=== PATIENT | female | born 1970 | race Caucasian/White ===

== ENCOUNTER 2023-03-23 11:57 | Inpatient (IN) ==
[2023-03-23] MEDS ORDERED: SODIUM CHLORIDE 0.9% 1000ML 1,000 ML IV STA (12:13)
[2023-03-23] MEDS ORDERED: KETOROLAC TROMETHAMINE 15 MG/ML VIAL IV ONE (12:47)
[2023-03-23 12:53] LABS: Appearance Urine Cloudy (Clear); Bacteria Urine Automated 4+ (Negative); Bilirubin Urine Negative (Negative); Blood Urine 3+ (Negative); Color Urine Yellow; Epithelial Cell Urine Auto 20-30 /lpf (0-5); Glucose Urine UA Negative (Negative); Ketones Urine Negative (Negative); Leukocyte Esterase Urine 2+ (Negative); Nitrite Urine Positive (Negative); Protein Urine 2+ (Negative); Specific Gravity Urine 1.019 (1.000-1.030); Urobilinogen Urine Negative (Negative); WBC Urine Automated >30 /hpf (0-5)
[2023-03-23 13:09] LABS: Albumin Globulin Ratio 1.4 (0.9-2); Albumin Level 3.8 gm/dl (3.4-5.0); Bilirubin,Total 0.5 mg/dl (0.2-1.0); Calcium 8.7 mg/dl (8.6-10.3); Est GFR (Non-African American) 42.2 ml/min; Globulin 2.8 gm/dl (2.5-4.0); Potassium 3.5 mmol/L (3.5-5.1); Total Protein 6.6 gm/dl (6.0-8.3)
[2023-03-23 13:38] LABS: Pregnancy Test, Serum Negative (Negative)
--- NOTE | 2023-03-23 13:42 | CT Scan Report ---
ABDOMEN AND PELVIS CT WITHOUT CONTRAST CT DOSE: 762.37 mGycm HISTORY: left flank pain TECHNIQUE: Multiaxial CT images of the abdomen and pelvis were performed without contrast. A dose lo wering technique was utilized adhering to the principles of ALARA. COMPARISON STUDY: None. FINDINGS: There is a punctate calcified granuloma within the right lower lobe. The left lung base is clear. Pneumoperitoneum. No pneumatosis. Avascular necrosis within the right femoral head without art icular collapse. No acute fractures identified. Multiple small gallstones. The unenhanced liver, sple en, adrenal glands, and pancreas are unremarkable. Normal right kidney. A few punctate stones within the lower pole the left kidney. This mild left perinephric edema. There is mild to moderate left-side d hydronephrosis secondary to an obstructing 11 x 5 mm stone within the left ureteropelvic junction. This is best seen on image 165. No retroperitoneal lymphadenopathy. Normal caliber abdominal aorta. N o pelvic free fluid or pelvic lymphadenopathy. The bladder, uterus, bilateral adnexa are within miguel l limits. Suboptimal evaluation for bowel pathology due to the lack of intravenous and oral contrast. However, there is no definite bowel wall thickening or obstruction. Normal appendix. A few colonic d iverticula. No evidence for acute diverticulitis. IMPRESSION: 1. An 11 x 5 mm obstructing stone within the left ureteropelvic junction resulting in mild to moderat e left-sided hydronephrosis. 2. Left-sided nephrolithiasis. 3. Cholelithiasis. 4. 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 ACT 112: Negative or not required by law. Electronically signed by: Vish Epps M.D. 03/23/2023 1:41 PM
[2023-03-23] MEDS ORDERED: cefTRIAXone SODIUM 2,000 MG/70 ML BAG IV STA (13:55)
[2023-03-23] MEDS ORDERED: HYDROmorphone INJ 0.5 MG/0.5 ML SYR IV PRN ×2 (13:57→15:26)
--- NOTE | 2023-03-23 14:01 | Emergency Department Note ---
Impression & Plan Pyelonephritis, Ureterolithiasis ED Provider Note INFORMANT: Patient ED PROVIDER(S): Chase Mishra MD CHIEF COMPLAINT: Left flank pain PLAN: Disposition: Admitted Condition: Good Outpatient prescription management: None Referral: MEDICAL DECISION MAKING: Patient presented because of left leg pain. Work-up was initiated. She had an IV established. She was hydrated. She was given Zofran and Toradol. The patient had a UTI and urinalysis. Her CBC and chemistry panel revealed a leukocytosis. The patient's CT scan reveals an obstructing left-sided large ureteral stone. Given the flank pain and the UTI this is concerning for pyelonephritis. Consultation was made with [facility] urology. The patient was treated with IV Rocephin. Urology will see the patient and likely intervention by Dr. Mayers. Sedation was made with the [facility] hospitalist service. Case was discussed with Dr. Stockton. Patient was evaluated in the ER and admitted for further management. 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 After review of the information above and other included data, I feel the patient requires admission. Triage Nursing notes reviewed and agree them. Vital Signs: reviewed and remarkable for no significant abnormalities Prior /Outside records reviewed: none Differential diagnosis: Renal colic, UTI, appendicitis, diverticulitis, mesenteric ischemia, aortic pathology, infections, inflammatory bowel disease, PUD, biliary pathology, as well as other pathologies. Diagnostics, as interpreted by me: ECG: none Cardiac Monitoring: Cardiac monitoring ordered by me: The patient was placed on continuous cardiac monitoring and observed. It revealed a normal sinus rhythm at 98 beats per minute without ectopy or evidence of dysrhythmia. Medical decision rules: none Imaging studies: CT scan as noted above. HPI: The patient is a 52year old female who presents to the Emergency Room with complaints of left flank pain. This started several days ago and is persisting. The patient also notes the following associated symptoms, left lower back pain, nausea, decreased urination. The patient has found no relieving factors. Current pain is rated as 7/10. Patient unsure of fevers. Pt denies LOC, headache, chills, diaphoresis, visual changes, neck pain, chest pain, breathing difficulties, vomiting, right-sided abdominal pain, right-sided back pain, melena, hematochezia, urinary symptoms, numbness, weakness, lymphadenopathy, rash, or other complaints. PAST MEDICAL HISTORY: See Below, asthma PAST SURGICAL HISTORY: See Below, SOCIAL HISTORY: See Below, smoker HOME MEDICATIONS: See Below ALLERGIES: See Below VITALS: See Below PHYSICAL EXAMINATION: GENERAL: Awake, alert, uncomfortable-appearing, in no distress HENT: Normocephalic, atraumatic. Oropharynx unremarkable. EYES: Normal conjunctiva. Sclera non-icteric. NECK: Inspection normal. Non-tender. Supple. No nuchal rigidity. FROM. No masses. RESPIRATORY: Clear to auscultation. No wheezes. No rales. Normal respiratory effort. CARDIAC: Normal rate. Normal rhythm. No murmurs. No rubs. Extremities warm and well perfused. Pulses equal. No JVD. GI: Soft, non-distended. No tenderness to palpation. No rebound or guarding. No masses. RECTAL: Deferred. MUSCULOSKELETAL: Atraumatic. Chest examination reveals no tenderness. The back is symmetrical on inspection without obvious abnormality. There is left CVA tenderness to palpation. No joint edema. LOWER EXTREMITIES: Calves are equal size bilaterally and non-tender. No edema. No discoloration. NEURO: Normal sensorium. No sensory or motor deficits noted. SKIN: No rash or jaundice noted. Past Med/Surg History Medical History (Updated 03/23/23 @ 15:32 by Federico Stockton MD) Mild intermittent asthma Tobacco use Ureterolithiasis Social History Smoking Status: Current every day smoker Preferred Language: Austrian Home Meds Home Medications Medication Instructions Recorded Confirmed albuterol sulfate 90 mcg/actuation 1 inh inhalation BID PRN Shortness 03/23/23 03/23/23 aerosol inhaler Of Breath Results & Data (ED) Vital Signs Vital Signs - 24 hr 03/23/23 12:00 03/23/23 12:32 03/23/23 12:32 Pulse Rate 115 H Pulse Rate from SpO2 Sensor Respiratory Rate 16 15 Blood Pressure 142/78 H Blood Pressure Mean 99 Pulse Oximetry 96 97 97 Oxygen Delivery Method Room Air Room Air Oxygen Flow Rate Sepsis Recent Fever Within 48 Hours No Sepsis New/Unexplained Change in Mental Status No Sepsis Action Taken by Nursing No Action Required 03/23/23 12:36 03/23/23 12:33 03/23/23 12:40 Pulse Rate 91 H 90 91 H Pulse Rate from SpO2 Sensor 90 91 H Respiratory Rate 15 23 Blood Pressure Blood Pressure Mean Pulse Oximetry 98 97 Oxygen Delivery Method Oxygen Flow Rate Sepsis Recent Fever Within 48 Hours Sepsis New/Unexplained Change in Mental Status Sepsis Action Taken by Nursing 03/23/23 12:50 03/23/23 13:00 03/23/23 13:10 Pulse Rate 90 93 H 92 H Pulse Rate from SpO2 Sensor 91 H 93 H 92 H Respiratory Rate 15 15 24 Blood Pressure Blood Pressure Mean Pulse Oximetry 97 98 97 Oxygen Delivery Method Oxygen Flow Rate Sepsis Recent Fever Within 48 Hours Sepsis New/Unexplained Change in Mental Status Sepsis Action Taken by Nursing 03/23/23 13:25 03/23/23 13:30 03/23/23 13:40 Pulse Rate 98 H 92 H 93 H Pulse Rate from SpO2 Sensor 98 H 93 H 93 H Respiratory Rate 23 15 15 Blood Pressure Blood Pressure Mean Pulse Oximetry 96 97 95 Oxygen Delivery Method Oxygen Flow Rate Sepsis Recent Fever Within 48 Hours Sepsis New/Unexplained Change in Mental Status Sepsis Action Taken by Nursing 03/23/23 13:50 03/23/23 14:00 03/23/23 14:10 Pulse Rate 101 H 98 H Pulse Rate from SpO2 Sensor 101 H 99 H 99 H Respiratory Rate 15 15 15 Blood Pressure Blood Pressure Mean Pulse Oximetry 95 94 94 Oxygen Delivery Method Oxygen Flow Rate Sepsis Recent Fever Within 48 Hours Sepsis New/Unexplained Change in Mental Status Sepsis Action Taken by Nursing 03/23/23 14:20 03/23/23 14:30 03/23/23 14:36 Pulse Rate Pulse Rate from SpO2 Sensor 98 H 101 H Respiratory Rate 15 15 Blood Pressure 119/57 L Blood Pressure Mean 77 Pulse Oximetry 96 90 Oxygen Delivery Method Oxygen Flow Rate Sepsis Recent Fever Within 48 Hours Sepsis New/Unexplained Change in Mental Status Sepsis Action Taken by Nursing 03/23/23 14:36 03/23/23 14:40 03/23/23 14:50 Pulse Rate Pulse Rate from SpO2 Sensor 100 H 98 H 101 H Respiratory Rate 18 23 23 Blood Pressure Blood Pressure Mean Pulse Oximetry 96 97 97 Oxygen Delivery Method Oxygen Flow Rate Sepsis Recent Fever Within 48 Hours Sepsis New/Unexplained Change in Mental Status Sepsis Action Taken by Nursing 03/23/23 15:36 Pulse Rate Pulse Rate from SpO2 Sensor Respiratory Rate 15 Blood Pressure Blood Pressure Mean Pulse Oximetry 96 Oxygen Delivery Method Nasal Cannula Oxygen Flow Rate 2 Sepsis Recent Fever Within 48 Hours Sepsis New/Unexplained Change in Mental Status Sepsis Action Taken by Nursing Laboratory Data 03/23/23 12:30 03/23/23 12:30 Lab Results 03/23/23 03/23/23 03/23/23 Range/Units 12:30 12:30 12:30 WBC 12.83 H (4.8-10.8) K/ul RBC 4.33 (4.20-5.40) M/uL Hgb 13.4 (12.0-16.0) g/dl Hct 38.7 (37.0-47.0) % MCV 89.4 (80.0-100.0) fL MCH 30.9 (25.0-34.0) pg MCHC 34.6 (32.0-36.0) g/dL RDW Std Deviation 42.5 (36.4-46.3) fL RDW Coeff of Bravo 13.0 (11.5-14.5) % Plt Count 169 (130-400) K/uL MPV 9.5 (9.4-12.4) fL Immature Gran % (Auto) 0.4 % Neut % (Auto) 82.6 % Lymph % (Auto) 6.0 % Nicholas % (Auto) 10.8 % Eos % (Auto) 0.0 % Baso % (Auto) 0.2 % Neut # (Auto) 10.60 H (1.40-6.50) K/uL Lymph # (Auto) 0.77 L (1.2-3.4) K/uL Nicholas # (Auto) 1.38 H (0.11-0.59) K/uL Eos # (Auto) 0.00 (0-0.50) K/uL Baso # (Auto) 0.03 (0-0.2) K/uL Immature Gran # (Auto) 0.05 (0.01-0.20) K/uL Sodium 132 L (136-145) mmol/L Potassium 3.5 (3.5-5.1) mmol/L Chloride 100 (98-107) mmol/L Carbon Dioxide 23 (21-32) mmol/L Anion Gap 9 (3-11) BUN 23 (6-23) mg/dl Creatinine 1.44 H (0.6-1.2) mg/dl Est Cr Clr Drug Dosing 50.0 ml/min Est GFR ( Amer) 49.0 ml/min Est GFR (Non-Af Amer) 42.2 ml/min BUN/Creatinine Ratio 16.0 (10-20) Glucose 111 H (70-99(Fasting)) mg/dl Calcium 8.7 (8.6-10.3) mg/dl Total Bilirubin 0.5 (0.2-1.0) mg/dl AST 26 (13-39) U/L ALT 30 (7-52) U/L Alkaline Phosphatase 81 (34-104) U/L Troponin I High Sens Total Protein 6.6 (6.0-8.3) gm/dl Albumin 3.8 (3.4-5.0) gm/dl Globulin 2.8 (2.5-4.0) gm/dl Albumin/Globulin Ratio 1.4 (0.9-2) Lipase 8 L (11-82) U/L HCG, Qual Negative (Negative) Urine Color Urine Appearance (Clear) Urine pH (4.5-7.5) Ur Specific Harold (1.000-1.030) Urine Protein (Negative) Urine Glucose (UA) (Negative) Urine Ketones (Negative) Urine Blood (Negative) Urine Nitrite (Negative) Urine Bilirubin (Negative) Urine Urobilinogen (Negative) Ur Leukocyte Esterase (Negative) Urine WBC (Auto) (0-5) /hpf Urine RBC (Auto) (0-4) /hpf U Hyaline Cast (Auto) (0-5) /lpf U Epithel Cells (Auto) (0-5) /lpf Urine Bacteria (Auto) (Negative) SARS-CoV-2, RNA, NAAT (NEGATIVE) 03/23/23 03/23/23 03/23/23 Range/Units 12:30 14:55 15:04 WBC (4.8-10.8) K/ul RBC (4.20-5.40) M/uL Hgb (12.0-16.0) g/dl Hct (37.0-47.0) % MCV (80.0-100.0) fL MCH (25.0-34.0) pg MCHC (32.0-36.0) g/dL RDW Std Deviation (36.4-46.3) fL RDW Coeff of Bravo (11.5-14.5) % Plt Count (130-400) K/uL MPV (9.4-12.4) fL Immature Gran % (Auto) % Neut % (Auto) % Lymph % (Auto) % Nicholas % (Auto) % Eos % (Auto) % Baso % (Auto) % Neut # (Auto) (1.40-6.50) K/uL Lymph # (Auto) (1.2-3.4) K/uL Nicholas # (Auto) (0.11-0.59) K/uL Eos # (Auto) (0-0.50) K/uL Baso # (Auto) (0-0.2) K/uL Immature Gran # (Auto) (0.01-0.20) K/uL Sodium (136-145) mmol/L Potassium (3.5-5.1) mmol/L Chloride (98-107) mmol/L Carbon Dioxide (21-32) mmol/L Anion Gap (3-11) BUN (6-23) mg/dl Creatinine (0.6-1.2) mg/dl Est Cr Clr Drug Dosing ml/min Est GFR ( Amer) ml/min Est GFR (Non-Af Amer) ml/min BUN/Creatinine Ratio (10-20) Glucose (70-99(Fasting)) mg/dl Calcium (8.6-10.3) mg/dl Total Bilirubin (0.2-1.0) mg/dl AST (13-39) U/L ALT (7-52) U/L Alkaline Phosphatase (34-104) U/L Troponin I High Sens Cancelled Total Protein (6.0-8.3) gm/dl Albumin (3.4-5.0) gm/dl Globulin (2.5-4.0) gm/dl Albumin/Globulin Ratio (0.9-2) Lipase (11-82) U/L HCG, Qual (Negative) Urine Color Yellow Urine Appearance Cloudy A (Clear) Urine pH 6.0 (4.5-7.5) Ur Specific Harold 1.019 (1.000-1.030) Urine Protein 2+ H (Negative) Urine Glucose (UA) Negative (Negative) Urine Ketones Negative (Negative) Urine Blood 3+ H (Negative) Urine Nitrite Positive A (Negative) Urine Bilirubin Negative (Negative) Urine Urobilinogen Negative (Negative) Ur Leukocyte Esterase 2+ H (Negative) Urine WBC (Auto) >30 H (0-5) /hpf Urine RBC (Auto) 10-30 H (0-4) /hpf U Hyaline Cast (Auto) 5-10 H (0-5) /lpf U Epithel Cells (Auto) 20-30 H (0-5) /lpf Urine Bacteria (Auto) 4+ H (Negative) SARS-CoV-2, RNA, NAAT NEGATIVE (NEGATIVE) Administered Medications Discontinued Medications Hydromorphone HCl (Hydromorphone Inj 0.5 Mg/0.5 Ml Syr) 0.25 mg IV Q15M PRN PRN Reason: Pain Stop: 04/06/23 13:56 Last Admin: 03/23/23 14:22 Dose: 0.25 mg Documented By: VALERIA Sodium Chloride (Nss 1000ml) 1,000 mls @ 999 mls/hr IV .Q1H1M STA Stop: 03/23/23 13:13 Last Infusion: 03/23/23 13:37 Dose: 0 mls/hr Documented By: Admin: 03/23/23 12:34 Dose: 999 mls/hr Documented By: VALERIA Ceftriaxone Sodium (Rocephin) 2,000 mg in 70 mls @ 140 mls/hr IV NOW STA Stop: 03/23/23 14:24 Last Infusion: 03/23/23 14:54 Dose: 0 mls/hr Documented By: Admin: 03/23/23 14:23 Dose: 140 mls/hr Documented By: VALERIA Ketorolac Tromethamine (Ketorolac Tromethamine 15 Mg/Ml Vial) 15 mg IV NOW ONE Stop: 03/23/23 12:48 Last Admin: 03/23/23 13:35 Dose: 15 mg Documented By: VALERIA Ondansetron HCl (Ondansetron Inj 2 Mg/Ml 2 Ml Vial) 4 mg IV NOW STA Stop: 03/23/23 14:12 Last Admin: 03/23/23 14:22 Dose: 4 mg Documented By: VALERIA Imaging Data Radiologist's Impression: Abdomen/Pelvis CT 03/23/23 12:[address] WITHOUT CONTRAST CT DOSE: 762.37 mGycm HISTORY: left flank pain TECHNIQUE: Multiaxial CT images of the abdomen and pelvis were performed without contrast. A dose lowering technique was utilized adhering to the principles of ALARA. COMPARISON STUDY: None. FINDINGS: There is a punctate calcified granuloma within the right lower lobe. The left lung base is clear. Pneumoperitoneum. No pneumatosis. Avascular necrosis within the right femoral head without articular collapse. No acute fractures identified. Multiple small gallstones. The unenhanced liver, spleen, adrenal glands, and pancreas are unremarkable. Normal right kidney. A few punctate stones within the lower pole the left kidney. This mild left perinephric edema. There is mild to moderate left-sided hydronephrosis secondary to an obstructing 11 x 5 mm stone within the left ureteropelvic junction. This is best seen on image 165. No retroperitoneal lymphadenopathy. Normal caliber abdominal aorta. No pelvic free fluid or pelvic lymphadenopathy. The bladder, uterus, bilateral adnexa are within normal limits. Suboptimal evaluation for bowel pathology due to the lack of intravenous and oral contrast. However, there is no definite bowel wall thickening or obstruction. Normal appendix. A few colonic diverticula. No evidence for acute diverticulitis. IMPRESSION: 1. An 11 x 5 mm obstructing stone within the left ureteropelvic junction resulting in mild to moderate left-sided hydronephrosis. 2. Left-sided nephrolithiasis. 3. Cholelithiasis. 4. 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 ACT 112: Negative or not required by law. Electronically signed by: Vish Epps M.D. 03/23/2023 1:41 PM Discharge Plan Visit Data Chief Complaint: Kidney Stone Stated Complaint: KIDNEY STONES, MAY TURN SEPSIS,PAIN,NAUSEA ED Provider: Chase Mishra Discharge Problem: Pyelonephritis, Ureterolithiasis Forms Stand Alone Forms: My [facility] BDA Prescriptions Prescriptions: No Action albuterol sulfate 90 mcg/actuation HFA aerosol inhaler 1 inh INHALATION BID PRN (Reason: Shortness Of Breath) Patient Comments: Per pt, she uses inhaler once in the morning and once at night. Referrals Referrals: PCP,NO [Primary Care Provider] -
[2023-03-23] MEDS ORDERED: ONDANSETRON INJ 2 MG/ML 2 ML VIAL IV STA (14:11)
[2023-03-23 14:16] LABS: Basophils # (auto) 0.03 K/uL (0-0.2); Basophils % (auto) 0.2 %; Hematocrit (blood only) 38.7 % (37.0-47.0); Hemoglobin 13.4 g/dl (12.0-16.0); Immature Granulocytes # (auto) 0.05 K/uL (0.01-0.20); Immature Granulocytes % (auto) 0.4 %; Lymphocytes # (auto) 0.77 K/uL (1.2-3.4); Mean Corpuscular Hemoglobin 30.9 pg (25.0-34.0); Mean Corpuscular Hgb Conc 34.6 g/dL (32.0-36.0); Mean Corpuscular Volume 89.4 fL (80.0-100.0); Mean Platelet Volume 9.5 fL (9.4-12.4); Monocytes # (auto) 1.38 K/uL (0.11-0.59); Monocytes % (auto) 10.8 %; Neutrophils % (auto) 82.6 %; Platelet Count 169 K/uL (130-400); RDW Standard Deviation 42.5 fL (36.4-46.3); Red Blood Count 4.33 M/uL (4.20-5.40); White Blood Count 12.83 K/ul (4.8-10.8)
--- NOTE | 2023-03-23 14:51 | History & Physical Report ---
Date of Service March 23, 2023 Assessment & Plan (1) Pyelonephritis: Plan: Estrellita is a 52-year-old female with past history of kidney stones who presents with an obstructing left UPJ stone and associated complicated UTI. She is having some chest tightness without cardiac history, but different from prior asthma episodes. Complicated UTI, left obstructing nephrolithiasis -CT: 1. An 11 x 5 mm obstructing stone within the left ureteropelvic junction resulting in mild to moderate left-sided hydronephrosis. 2. Left-sided nephrolithiasis. 3. Cholelithiasis. 4. 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 With leukocytosis, fever, chills and associated ZARI Patient tachycardic, mildly hypotensive, with leukocytosis and urinary source. Meets SIRS criteria. At time of consultation additional NSS was ordered to meet 30 cc/kg ideal body weight, antibiotics have been ordered. Antibiotics given prior to blood cultures, these are deferred. Clear urinary source, with infected appearing UA and UCx pending. Defer additional Toradol due to ZARI Multimodal pain control, Tylenol and breakthrough hydromorphone Urology consulted, anticipate stent placement and stone retrieval Troponin pending, patient has had some chest tightness different from prior asthma, which is improved following fluids. No history of heart disease, does have tobacco use. No diabetes. Chest pain No EKG changes. QTC 398ms. Asthma Well-controlled, no wheezing. Continue albuterol as needed ZARI, acute unstable In the setting of obstructive hydronephrosis and poor intake Pending stone intervention with urology as above Continue fluids, trend daily, renally dose medications DVT prophylaxis: Heparin due to ZARI Diet: N.p.o. pending urologic intervention Disposition: Medical telemetry for chest pain eval, if stable and patient doing well may downgrade to medical surgical CODE STATUS: Full code (2) Ureterolithiasis: History of Present Illness Primary Care Provider: NO PCP Estrellita seen at the bedside in the ER. She reports she has had kidney stones before, last 1 year ago but they have never required treatment and has always been able to pass the stones on her own. She reports that she has had treatment for UTIs in the past, but her current episode seems much worse. She reports the last 4 days she has had progressively worsening pain in her left lower abdomen which radiates into her left back and is with CVA tenderness. She had fever, chills, shaking sweats for at least the last 2 days. She is not sure what color her urine is, has not been eating and drinking well due to nausea. No diarrhea. She has history of asthma with some chest tightness, in the last day she has had some chest tightness which feels different than her normal asthma tightness but denies pain. This does not radiate to her neck or shoulder. No prior cardiac history, heart failure, or heart attacks. No history of MIs in the family. She does use tobacco products which she has not used recently due to feeling poor and declines a patch. Rare intermittent alcohol use, no sustained use. No antibiotic allergies. Medical History: Reviewed. Past history of kidney stones. Takes no chronic medications. Uses albuterol as needed for exercise-induced asthma, has not needed this recently. Denies other medications. Medications: Reviewed Surgical History: Reviewed Family history: Reviewed Allergies: Reviewed Social History: Tobacco use, no alcohol use Code Status: Full code Allergies Allergy/AdvReac Type Severity Reaction Status Date / Time No Known Allergies Allergy Verified 03/23/23 17:51 Home Medications Medication Instructions Recorded Confirmed Type albuterol sulfate 90 mcg/actuation 1 inh inhalation DIRECTED PRN 03/23/23 03/23/23 History aerosol inhaler Shortness Of Breath Past Med/Surg History Medical History Mild intermittent asthma Tobacco use Ureterolithiasis Surgical History (Updated 03/23/23 @ 17:52 by Malina Victoria DO) H/O wisdom tooth extraction History of bilateral breast reduction surgery Social History Smoking Status: Current every day smoker Hx Alcohol Use: Yes Alcohol type: beer Hx Substance Use: No Preferred Language: Irish Current Living Situation: Spouse Feels Safe at Home: Yes Safety Concerns: Feels Safe At This Time Assistive Devices: None Review of Systems Review of Systems: All systems reviewed & are unremarkable except as noted in HPI & below Physical Exam Physical Exam: General: A&Ox3. Cooperative. Appears fatigued and ill but nontoxic HEENT: Atraumatic, normocephalic. Pupils equal and reactive to light, vision and hearing grossly intact Pulm: CTAB A&P. -wheezes, -rales, -rhonchi. Symmetrical chest rise. No increased work of breathing. No respiratory distress. Cardiac: Regular, tachycardic, -mrg. Radial pulses intact and symmetrical. Abdominal: Left lower quadrant tenderness to palpation, left CVA tenderness. No right-sided tenderness. Abdomen is soft and without rebound or guarding. Extremities: Warm, dry. No lower extremity edema. 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 and ankle dorsiflexion/plantarflexion 5/5 bilateral Results & Data Results & Data Vital Signs (Past 12 Hours) Vital Signs Pulse Resp BP Pulse Ox O2 Del Method 03/23/23 12:36 91 H 03/23/23 12:32 15 97 Room Air 03/23/23 12:32 16 97 Room Air 03/23/23 12:00 115 H 142/78 H 96 Code Status & VTE Plan VTE Prophylaxis Plan VTE Prophylaxis will be ordered: Yes PG Care Time/CCT Total # of Minutes Spent Total Time Spent with Patient: Total time spent is greater than 50% in coordination of care (as documented) at patient's floor/unit and/or counseling patient: Coding Level of Care Code 45528 INT INP/OBS CARE 2/55MIN Diagnoses Pyelonephritis N12 Ureterolithiasis N20.1
--- NOTE | 2023-03-23 15:17 | Urology Consultation ---
Date of Consultation March 23, 2023 Assessment & Plan (1) Left ureteral stone: (2) Hydronephrosis, left: (3) UTI (urinary tract infection): Plan 52yo/F admitted with concern for infection and an obstructing left ureteral stone. -CT abd pelvis demonstrates an 11x5mm obstructing left UPJ with mild-mod hydro and additional left sided renal stones. -No documented fever. Tachycardic. -Labs show a leukocytosis of 12.83, hemoglobin 13, creatinine of 1.44. Continue to trend. -UA concerning for infection, culture pending. -IV Ceftriaxone given in ED. -We discussed acute stone management with cystoscopy and stent placement. Ureteral stents were discussed as well as postoperative issues and pain management. She is aware that a second procedure will be necessary for definitive stone treatment. All questions were answered. -Will keep NPO for now for possible left sided stent placement either later tonight or tomorrow. -Continue supportive care, antibiotic therapy, prn pain management. -Urology will follow closely. History of Present Illness History of Present Illness 52 year-old female who presented to the ED today with complaints of left flank pain and nausea for several days. On arrival, she was afebrile and tachycardic. Labs show a leukocytosis of 12.83 and creatinine of 1.44. UA with 3+blood, +nitrite, 2+LE, 4+bacteria. CT abd pelvis demonstrates an 11x5mm obstructing left UPJ with mild-mod hydro and additional left sided renal stones Pt given dilaudid, toradol, zofran in ED. Urine culture pending -IV Ceftriaxone given. Patient examined at bedside in the ED. Awake, resting in bed on arrival. No acute distress. She does report a history of stones with spontaneous passage. Does not follow with a urologist. She does report subjective fevers and chills/shakes at home, however did not check her temperature. Has not been eating or drinking well due to nausea. Denies hematuria/dysuria. Had cereal around 5:30am, but nothing since other than a few sips of water. Pt being admitted to medicine. Has also c/o chest tightness so they are checking troponin. No cardiac hx. Has hx of asthma. Home Medications Medication Instructions Recorded Confirmed Type albuterol sulfate 90 mcg/actuation 1 inh inhalation DIRECTED PRN 03/23/23 03/23/23 History aerosol inhaler Shortness Of Breath Patient History Medical History Mild intermittent asthma Tobacco use Ureterolithiasis Social History Smoking Status: Current every day smoker Hx Alcohol Use: Yes Alcohol type: beer Hx Substance Use: No Preferred Language: [place]an Current Living Situation: Spouse Feels Safe at Home: Yes Safety Concerns: Feels Safe At This Time Assistive Devices: None Review of Systems Review of Systems: All systems reviewed & are unremarkable except as noted in HPI & below Physical Exam Constitutional: Appears fatigued, flushed. Non-toxic. Cooperative. Neck: normal visual inspection Respiratory: no respiratory distress and no labored breathing Gastrointestinal (Abdomen): Percussion/Palpation: + abdomen tender (left side) and abdomen soft Musculoskeletal: Head/Neck/Chest: normocephalic Skin: No visible rashes or lesions to exposed skin areas Neurologic: awake Psychiatric: A+Ox3, euthymic affect Genitourinary: Left flank/LLQ tenderness with palpation Results & Data Vital Signs (Past 12 Hours) Vital Signs Pulse Resp BP Pulse Ox O2 Del Method 03/23/23 14:50 23 97 03/23/23 14:40 23 97 03/23/23 14:36 18 96 03/23/23 14:36 119/57 L 03/23/23 14:30 15 90 03/23/23 14:20 15 96 03/23/23 14:10 15 94 03/23/23 14:00 98 H 15 94 03/23/23 13:50 101 H 15 95 03/23/23 13:40 93 H 15 95 03/23/23 13:30 92 H 15 97 03/23/23 13:25 98 H 23 96 03/23/23 13:10 92 H 24 97 03/23/23 13:00 93 H 15 98 03/23/23 12:50 90 15 97 03/23/23 12:40 91 H 23 97 03/23/23 12:33 90 15 98 03/23/23 12:36 91 H 03/23/23 12:32 15 97 Room Air 03/23/23 12:32 16 97 Room Air 03/23/23 12:00 115 H 142/78 H 96 PG Care Time/CCT Total # of Minutes Spent Total Time Spent with Patient: Total time spent is greater than 50% in coordination of care (as documented) at patient's floor/unit and/or counseling patient: Coding Level of Care Code 50907 IN/OBS CONSULT LVL 4,60M Diagnoses Left ureteral stone N20.1 Hydronephrosis, left N13.30 UTI (urinary tract infection) N39.0
[2023-03-23] MEDS ORDERED: ACETAMINOPHEN 1,000 MG/100 ML VIAL IV PRN (15:26)
[2023-03-23 16:11] LABS: Troponin I High Sensitivity 5.3 pg/ml (0-14)
[2023-03-23] MEDS ORDERED: ONDANSETRON INJ 2 MG/ML 2 ML VIAL IV PRN ×2 (16:27→17:32)
[2023-03-23] MEDS ORDERED: NSS + 20MEQ KCL 20 MEQ/1,000 ML BAG IV SCH (16:27)
[2023-03-23] MEDS: NSS + 20MEQ KCL 20 MEQ/1,000 ML BAG IV SCH (16:58)
[2023-03-23] MEDS ORDERED: fentaNYL citrate PF 100 MCG/2 ML VIAL IV PRN (17:32)
[2023-03-23] MEDS ORDERED: MoRPHine SULFATE 10 MG/ML CARP/VIAL IV PRN (17:32)
[2023-03-23] MEDS ORDERED: ATROPINE SULFATE 0.1 MG/ML 10ML SYR IV PRN (17:32)
[2023-03-23] MEDS ORDERED: ePHEDrine sulfate 50 MG/ML AMP IV PRN (17:32)
[2023-03-23] MEDS ORDERED: MEPERIDINE HCL 25 MG/ML CARP/VIAL IV PRN (17:32)
--- NOTE | 2023-03-23 17:34 | Anesthesiology Consultation ---
Date of Service March 23, 2023 Assessment & Plan Chart Review Chart Review: Acceptable Risk for Surgery Consults Requested none ASA [id number] Proposed Anesthesia Anesthesia Type: MAC Risk / Benefits Reviewed With: PT / POA / Parent / Guardian, Accepts Plan and Informed Consent Obtained History Surgery Operation Date: 03/23/23 12:55 Proposed Procedures p Cystoscopy, Left Ureteral Stent - Antoni Mayers MD Height/Weight Height: 5 ft 6 in Weight: 77.467 kg Allergies Allergy/AdvReac Type Severity Reaction Status Date / Time No Known Allergies Allergy Verified 03/23/23 17:51 Medications Home Medications Medication Instructions Recorded Confirmed Last Taken albuterol sulfate 90 mcg/actuation 1 inh inhalation DIRECTED PRN 03/23/23 03/23/23 03/23/23 aerosol inhaler Shortness Of Breath Active Medications Generic Name Dose Route Start Last Admin Trade Name Freq PRN Reason Stop Dose Admin Potassium Chloride/Sodium Chloride 20 meq in 1,000 mls @ 120 mls/hr 03/23/23 15:30 03/23/23 16:58 Normal Saline W/20 Meq Kcl IV 04/22/23 15:29 120 mls/hr .[id number] MARILU Administration Protocol NPO Date Last Intake of Fluids: 03/23/23 Time Last Intake of Fluids: 05:30 Date Last Intake of Solids: 03/23/23 Time Last Intake of Solids: 05:30 Past Medical History Medical History Mild intermittent asthma Tobacco use Ureterolithiasis Exercise / Class Metabolic Activity II 4-5 Yardwork/Stairs/Walk up hill Past Surgical History Surgical History (Updated 03/23/23 @ 17:52 by Malina Victoria DO) H/O wisdom tooth extraction History of bilateral breast reduction surgery Past Anesthesia History No Hx of Anesthesia Complications and No Family Hx of Anesthesia Complications History of PONV No Hx of PONV and No Hx of Motion Sickness Social History Smoking Status: Current every day smoker tobacco type: cigarettes Hx Alcohol Use: Yes Alcohol type: beer alcohol intake frequency: a few times a month Hx Substance Use: No Physical Exam Vital Signs Last Vital Signs Temp 38.1 C H 03/23/23 16:31 Pulse 91 H 03/23/23 17:18 Resp 20 03/23/23 16:31 BP 111/66 03/23/23 16:31 Pulse Ox 98 03/23/23 16:31 O2 Del Method Room Air 03/23/23 16:31 O2 Flow Rate 2 03/23/23 15:36 ENMT Mouth: + small oral opening; no TMJ abnormality Thyromental Distance: > or= 3.5 Finger Breadths Mallampati Class: III Neck normal visual inspection and trachea midline; neck extension not limited Respiratory normal respiratory effort Auscultation: lungs clear to auscultation bilaterally Cardiovascular Rate/Rhythm: regular rate and regular rhythm Heart Sounds: no murmur Musculoskeletal Spine: normal cervical ROM Extremities: full ROM of extremities Neurologic moves all extremities Psychiatric Orientation: alert and oriented x 3 Testing Laboratory Results 03/23/23 12:30 03/23/23 12:30 Urine Color Yellow 03/23/23 12:30 Urine Appearance Cloudy (Clear) A 03/23/23 12:30 Urine pH 6.0 (4.5-7.5) 03/23/23 12:30 Ur Specific Navarro 1.019 (1.000-1.030) 03/23/23 12:30 Urine Protein 2+ (Negative) H 03/23/23 12:30 Urine Glucose (UA) Negative (Negative) 03/23/23 12:30 Urine Ketones Negative (Negative) 03/23/23 12:30 Urine Nitrite Positive (Negative) A 03/23/23 12:30 Ur Leukocyte Esterase 2+ (Negative) H 03/23/23 12:30 Urine WBC (Auto) >30 /hpf (0-5) H 03/23/23 12:30 Urine RBC (Auto) 10-30 /hpf (0-4) H 03/23/23 12:30 U Hyaline Cast (Auto) 5-10 /lpf (0-5) H 03/23/23 12:30 U Epithel Cells (Auto) 20-30 /lpf (0-5) H 03/23/23 12:30 Urine Bacteria (Auto) 4+ (Negative) H 03/23/23 12:30 Electrocardiogram Date: 03/23/23 Findings: + NSR @ (91)
[2023-03-23] MEDS ORDERED: PROPOFOL IV EMULSION 10 MG/ML 20 ML VIAL IV ONE ×2 (17:39→18:23)
[2023-03-23] MEDS ORDERED: MIDAZOLAM HCL 1 MG/ML 2ML VIAL ONE (17:40)
[2023-03-23] MEDS ORDERED: fentaNYL citrate PF 100 MCG/2 ML VIAL ONE (17:40)
--- NOTE | 2023-03-23 17:42 | History & Physical Bridge Note ---
Date of Service March 23, 2023 History & Physical Bridge Note I have examined the patient, reviewed the History & Physical and in the interval since the performance of the History & Physical I have noted the following changes of clinical significance: no changes noted Patient seen and examined Borderline tachycardic Febrile Given the other findings and UA findings, I think it is pertinent that we move to the operating room immediately for cystoscopy and left ureteral stent placement to decompress the kidney and allow adequate treatment of her infection Risks, benefits, expectations reviewed
[2023-03-23] MEDS ORDERED: Patient's ALLERGY Info needs ENTERED SCH (17:45)
[2023-03-23] MEDS: ACETAMINOPHEN 1,000 MG/100 ML VIAL IV PRN (17:55)
[2023-03-23] MEDS ORDERED: LIDOCAINE 2% MPF LOCAL 5 ML VIAL ONE (18:13)
--- NOTE | 2023-03-23 18:33 | Operative Report ---
PG Post Operative Report Pre & Post Diagnosis Operation Date: 03/23/23 12:55 Pre-Op Diagnosis: (1) Left ureteral stone, (2) Hydronephrosis, left, (3) Urinary tract infection Post-Op Diagnosis: (1) Left ureteral stone, (2) Hydronephrosis, left, (3) Urinary tract infection I identified the patient and participated in the time-out.: Yes Procedure Operation Date: 03/23/23 12:55 Actual Procedures p Cystoscopy, Left Ureteral Stent(Left) - Antoni Mayers MD Surgeon Antoni Mayers MD Road Supervisor none Estimated Blood Loss 0 Findings Consistent with Post-Op Diagnosis Specimens none Description of Procedure The patient was identified in the preoperative holding area, appropriate informed consents were reviewed and completed and the patient was transferred to the operative suite. Upon arrival, appropriate antibiotics and anesthesia were administered and the patient was placed in dorsal lithotomy position and prepped and draped in sterile fashion. To begin the case to pass a 22 Moldovan cystoscope with 30 degree lens. Inspection revealed a healthy-appearing bladder with ureteral orifices in orthotopic position. The left UO was cannulated with a sensor wire which advanced to the kidney. There was an opacity in the area of the presumed UPJ which is consistent with her preoperative imaging. As soon as the wire bypassed the stone there was a discharge of murky/cloudy urine. I proceeded to place a 6 Moldovan by 24 cm double-J stent seeing a good curl in the kidney as well as the bladder. There was excellent drainage of purulent urine through and around the stent. I concluded the case and she was reversed of anesthesia and taken to the recovery room in stable condition. There were no complications. I attest to the content of the Intraoperative Record and any orders documented therein. Any exceptions are noted below.
--- NOTE | 2023-03-23 18:46 | Anesthesiology Progress Note ---
Date of Service March 23, 2023 Anesthesia Post Procedure Vital Signs Vital Signs: Temp Pulse Pulse Resp BP BP BP 03/23/23 18:40 89 21 98/45 L 03/23/23 18:32 38.7 C H 98 H 16 96/48 L 03/23/23 17:58 38.1 C H 97 H 18 119/61 03/23/23 16:27 38.1 C H 18 111/66 03/23/23 17:18 91 H 03/23/23 16:31 38.1 C H 20 111/66 03/23/23 15:36 15 03/23/23 14:50 23 03/23/23 14:40 23 03/23/23 14:36 18 03/23/23 14:36 119/57 L 03/23/23 14:30 15 03/23/23 14:20 15 03/23/23 14:10 15 03/23/23 14:00 98 H 15 03/23/23 13:50 101 H 15 03/23/23 13:40 93 H 15 03/23/23 13:30 92 H 15 03/23/23 13:25 98 H 23 03/23/23 13:10 92 H 24 03/23/23 13:00 93 H 15 03/23/23 12:50 90 15 03/23/23 12:40 91 H 23 03/23/23 12:33 90 15 03/23/23 12:36 91 H 03/23/23 12:32 15 03/23/23 12:32 16 03/23/23 12:00 115 H 142/78 H Pulse Ox O2 Del Method O2 Flow Rate 03/23/23 18:40 91 Room Air 03/23/23 18:32 97 Oxymask 5 03/23/23 17:58 93 Room Air 03/23/23 16:27 98 Room Air 03/23/23 17:18 03/23/23 16:31 98 Room Air 03/23/23 15:36 96 Nasal Cannula 2 03/23/23 14:50 97 03/23/23 14:40 97 03/23/23 14:36 96 03/23/23 14:36 03/23/23 14:30 90 03/23/23 14:20 96 03/23/23 14:10 94 03/23/23 14:00 94 03/23/23 13:50 95 03/23/23 13:40 95 03/23/23 13:30 97 03/23/23 13:25 96 03/23/23 13:10 97 03/23/23 13:00 98 03/23/23 12:50 97 03/23/23 12:40 97 03/23/23 12:33 98 03/23/23 12:36 03/23/23 12:32 97 Room Air 03/23/23 12:32 97 Room Air 03/23/23 12:00 96 Pain Intensity Flank: Pain Intensity: 5 Transfer of Care Handoff Completed per policy Notes Mental Status: alert / awake / arousable Patient Amnestic to Procedure: Yes Nausea / Vomiting: adequately controlled Pain: adequately controlled Airway Patency, RR, SpO2: stable & adequate BP & HR: stable & adequate Hydration State: stable & adequate Anesthetic Complications: no major complications apparent and Pt Satisfied with anesthetic care
--- NOTE | 2023-03-23 19:01 | Fluoroscopy Report ---
FL KUB CLINICAL HISTORY: LT CYSTO/STENTleft-sided cystourethrogram COMPARISON STUDY: CT abdomen and pelvis of same day FLUOROSCOPY TIME: 4.1 seconds FLUOROSCOPY IMAGES: 2 EXPOSURE DOSE: 0.86 mGy FINDINGS: A left-sided ureteral stent proximal portion is in satisfactory positioning. The distal por tion of the stent was not imaged. Persistent proximal left ureteral calculus. IMPRESSION: Fluoroscopic assistance as above. ACT 112: Negative or not required by law. Electronically signed by: Marty Chaudhry M.D. 03/23/2023 6:59 PM
[2023-03-23] MEDS ORDERED: ALBUTEROL HFA 8 GM INHALER INH PRN (19:09)
[2023-03-24] MEDS: NSS + 20MEQ KCL 20 MEQ/1,000 ML BAG IV SCH ×3 (02:19→21:21)
[2023-03-24] MEDS: ACETAMINOPHEN 1,000 MG/100 ML VIAL IV PRN (02:22)
[2023-03-24 07:53] LABS: Basophils # (auto) 0.02 K/uL (0-0.2); Basophils % (auto) 0.2 %; Hematocrit (blood only) 35.2 % (37.0-47.0); Hemoglobin 12.3 g/dl (12.0-16.0); Immature Granulocytes # (auto) 0.05 K/uL (0.01-0.20); Immature Granulocytes % (auto) 0.5 %; Lymphocytes # (auto) 1.07 K/uL (1.2-3.4); Lymphocytes % (auto) 9.8 %; Mean Corpuscular Hemoglobin 31.3 pg (25.0-34.0); Mean Corpuscular Hgb Conc 34.9 g/dL (32.0-36.0); Mean Corpuscular Volume 89.6 fL (80.0-100.0); Mean Platelet Volume 9.5 fL (9.4-12.4); Monocytes # (auto) 0.96 K/uL (0.11-0.59); Monocytes % (auto) 8.8 %; Neutrophils # (auto) 8.87 K/uL (1.40-6.50); Neutrophils % (auto) 80.7 %; Platelet Count 144 K/uL (130-400); RDW Coefficient of Variation 13.2 % (11.5-14.5); RDW Standard Deviation 43.7 fL (36.4-46.3); Red Blood Count 3.93 M/uL (4.20-5.40); White Blood Count 10.97 K/ul (4.8-10.8)
[2023-03-24 08:19] LABS: BUN Creatinine Ratio 15.1 (10-20); Calcium 8.2 mg/dl (8.6-10.3); Creatinine Clr Calc Pharmacy 56.5 ml/min; Est GFR (African American) 57.5 ml/min; Est GFR (Non-African American) 49.6 ml/min; Potassium 4.3 mmol/L (3.5-5.1)
--- NOTE | 2023-03-24 09:57 | Urology Progress Note ---
Date of Service March 24, 2023 Assessment & Plan (1) Left ureteral stone: (2) Hydronephrosis, left: (3) UTI (urinary tract infection): Plan 52yo/F admitted with concern for infection and an obstructing left ureteral stone. CT abd pelvis demonstrated an 11x5mm obstructing left UPJ with mild-mod hydro and additional left sided renal stones. -POD #1 s/p cystoscopy, left stent placement. -Temp of 37.8 this morning, hypotensive. -Labs show a wbc of 12.83-10.97 today, hemoglobin 12.3, creatinine improved to 1.26. Continue to trend. -UCx prelim gram negative bacilli, blood cultures pending. -Continues on IV Ceftriaxone. Follow cultures and tailor as culture data becomes available. -Voiding spontaneously, continue to monitor. -Will arrange an outpatient follow-up with our service for definitive stone treatment after the infection has been treated. -Continue supportive care, antibiotic therapy, prn pain management. -Urology will follow. Admission and Anticipated Discharge Date Admission Date: March 23, 2023 Supervising Physician Co-Signing Physician Notes Progressing as expected Still with some intermittent fevers Still does not feel well overall but seems to be a bit better than she was yesterday Vitals are currently stable and she is currently afebrile Continue antibiotics and supportive care We will defer stone treatment until her infection has resolved completely (outpatient) Subjective POD #1 s/p cysto, left stent Pt examined at bedside this AM. Awake, resting in bed on arrival. No acute distress. Tmax 38.5 overnight. Tolerated breakfast, no nausea or vomiting. Voiding without issue, some hematuria and dysuria. Having some left sided flank pain, but improved from yesterday. Overall seems to be tolerating the stent fairly well. Review of Systems Constitutional: as per Subjective / HPI Gastrointestinal: as per Subjective / HPI Genitourinary: as per Subjective / HPI Physical Exam Constitutional: no acute distress Respiratory: no respiratory distress and no labored breathing Gastrointestinal (Abdomen): Percussion/Palpation: abdomen soft; abdomen nontender Skin: No visible rashes or lesions to exposed skin areas Neurologic: awake Psychiatric: Orientation: alert, oriented x 3 and cooperative Results & Data Vital Signs (Past 12 Hours) Vital Signs Temp Pulse Pulse Resp BP Pulse Ox O2 Del Method 03/24/23 07:04 73 03/24/23 06:42 37.8 C H 03/24/23 06:29 37.8 C H 72 16 99/60 L 93 Room Air 03/24/23 03:29 38.5 C H 84 16 102/63 92 Room Air 03/24/23 00:05 37.1 C 72 18 98/62 L 96 Room Air 03/23/23 22:53 71 03/23/23 22:02 36.8 C 74 16 92/58 L 96 Room Air PG Care Time/CCT Total # of Minutes Spent Total Time Spent with Patient: Total time spent is greater than 50% in coordination of care (as documented) at patient's floor/unit and/or counseling patient: Coding Level of Care Code 24064 SUB INP/OBS CARE 2/35MIN Diagnoses Left ureteral stone N20.1 Hydronephrosis, left N13.30 UTI (urinary tract infection) N39.0
[2023-03-24] MEDS: ACETAMINOPHEN 500 MG TAB PO PRN ×2 (10:02→19:18)
[2023-03-24] MEDS: cefTRIAXone SODIUM 2,000 MG in DEXTROSE 5% 50 ML IV SCH (14:58)
[2023-03-24] MEDS ORDERED: DIPHENOXYLATE/ATROPINE 2.5/0.025MG TAB PO ONE (15:30)
--- NOTE | 2023-03-24 15:54 | Hospitalist Progress Note ---
Date of Service March 24, 2023 Assessment & Plan (1) Pyelonephritis: Plan: Left pyelonephritis present on admission from obstructing left stone. Gram- negative rods isolated in the urine. Continue Rocephin, day 2. Will tailor antibiotics according to culture results. Appreciate urology consultation and recommendations. Cystoscopy with left ureter stent placement has been completed. (2) Ureterolithiasis: Plan: Obstructing left ureter stone with associated UTI and left hydronephrosis. Urology consultation appreciated. Left ureteral stent has been placed (3) Hydronephrosis, left: Plan: Due to obstructing left ureter stone. Left stent has been placed. Appreciate urology consultation and recommendations (4) Tobacco use: Plan: Smoking cessation advised (5) Left ureteral stone: Plan: Urology consultation and recommendations appreciated. Cystoscopy has been performed with placement of left ureter stent (6) UTI (urinary tract infection): Plan: Gram-negative rods isolated. Continue Rocephin, day 2. Will tailor antibiotics according to sensitivities (7) Intrinsic asthma: Plan: Stable. Inhalers as needed (8) Acute kidney injury: Plan: Mild. Improved with IV fluids. Serial labs Plan Anticipate eventual discharge to home Admission and Anticipated Discharge Date Admission Date: March 23, 2023 Subjective Alert and oriented. No acute distress. is at the bedside. She continues to have intermittent low-grade fever. Gram-negative rods isolated in the urine. Blood cultures pending. She remains on Rocephin, day 2. Creatinine improved to 1.2. Continue IV fluids. She is status postplacement of a left ureter stent. Appreciate urology consultation and recommendations Review of Systems Review of Systems: Constitutional-intermittent low-grade fever ENT-no blurred vision, no double vision, no epistaxis, no sore throat Respiratory-no cough, no wheezing, no shortness of breath Cardiac-no palpitations, no chest pain, no syncope GI-no nausea, vomiting, diarrhea, melena, hematochezia -left flank discomfort improved after stent placement. No hematuria Musculoskeletal-no joint pain, no muscle tenderness Skin-no bruising, no rashes, no pruritus Neuro-no isolated weakness, no paresthesia, no weakness Psych-no depression, no anxiety Physical Exam Physical Exam: General-alert and oriented x3, no fevers, no chills HEENT-head atraumatic and normocephalic, pupils equal and reactive to light, extraocular muscles intact Neck-no lymphadenopathy or thyromegaly, trachea midline Chest-clear to auscultation percussion. No rales wheezing or rhonchi Cardiac-regular rate and rhythm, normal S1 and S2 Abdomen-normal bowel sounds, nontender, no hepatosplenomegaly Extremities-no cyanosis, clubbing, or edema Neuro-cranial nerves II through XII intact, motor and sensory function within normal limits, strength symmetrical , no focal deficits Psych-normal affect, normal mood Results & Data Results & Data Vital Signs (Past 12 Hours) Vital Signs Temp Pulse Pulse Resp BP Pulse Ox O2 Del Method 03/24/23 15:31 37.0 C 70 16 101/65 94 Room Air 03/24/23 11:02 38.0 C H 84 20 109/54 L 94 Room Air 03/24/23 07:04 73 03/24/23 06:42 37.8 C H 03/24/23 06:29 37.8 C H 72 16 99/60 L 93 Room Air Laboratory Results 03/24/23 07:12 03/24/23 07:12 PG Care Time/CCT Total # of Minutes Spent Total Time Spent with Patient: Total time spent is greater than 50% in coordination of care (as documented) at patient's floor/unit and/or counseling patient: Coding Level of Care Code 98965 SUB INP/OBS CARE 3/50MIN Diagnoses Pyelonephritis N12 Ureterolithiasis N20.1 Hydronephrosis, left N13.30 Tobacco use Z72.0 Left ureteral stone N20.1 UTI (urinary tract infection) N39.0 Intrinsic asthma J45.909 Acute kidney injury N17.9
--- NOTE | 2023-03-24 19:01 | Electrocardiogram Report ---
Test Reason : Blood Pressure : / mmHG Vent. Rate : 091 BPM Atrial Rate : 091 BPM P-R Int : 150 ms QRS Dur : 090 ms QT Int : 324 ms P-R-T Axes : 067 059 036 degrees QTc Int : 398 ms Normal sinus rhythm Normal ECG No previous ECGs available Confirmed by Juan Leyva ([id number]) on 03/24/2023 7:01:05 PM Referred By: REFERRED SELF Confirmed By:Juan Leyva
[2023-03-24] MEDS: HEPARIN SOD 5,000 UNIT/0.5 ML VIAL SQ SCH (21:22)
[2023-03-24] MEDS ORDERED: IBUPROFEN 600 MG TAB PO STA (21:33)
[2023-03-25] MEDS: NSS + 20MEQ KCL 20 MEQ/1,000 ML BAG IV SCH ×2 (06:09→16:36)
[2023-03-25] MEDS: HEPARIN SOD 5,000 UNIT/0.5 ML VIAL SQ SCH ×3 (06:09→23:34)
[2023-03-25 07:07] LABS: Basophils # (auto) 0.02 K/uL (0-0.2); Basophils % (auto) 0.2 %; Eosinophils # (auto) 0.02 K/uL (0-0.50); Eosinophils % (auto) 0.2 %; Hemoglobin 11.3 g/dl (12.0-16.0); Immature Granulocytes # (auto) 0.09 K/uL (0.01-0.20); Immature Granulocytes % (auto) 0.8 %; Lymphocytes # (auto) 1.22 K/uL (1.2-3.4); Lymphocytes % (auto) 10.5 %; Mean Corpuscular Hemoglobin 30.5 pg (25.0-34.0); Mean Corpuscular Hgb Conc 34.2 g/dL (32.0-36.0); Mean Corpuscular Volume 89.2 fL (80.0-100.0); Mean Platelet Volume 9.7 fL (9.4-12.4); Monocytes % (auto) 11.2 %; Neutrophils # (auto) 8.95 K/uL (1.40-6.50); Neutrophils % (auto) 77.1 %; Platelet Count 164 K/uL (130-400); RDW Coefficient of Variation 13.3 % (11.5-14.5); RDW Standard Deviation 44.1 fL (36.4-46.3)
[2023-03-25 07:40] LABS: BUN Creatinine Ratio 14.8 (10-20); Calcium 7.9 mg/dl (8.6-10.3); Creatinine Clr Calc Pharmacy 81.9 ml/min; Est GFR (African American) 88.8 ml/min; Est GFR (Non-African American) 76.6 ml/min; Potassium 3.9 mmol/L (3.5-5.1)
[2023-03-25 08:14] LABS: Adenovirus F 40/41 PCR Not Detected (NotDetected); Astrovirus PCR Not Detected (NotDetected); Campylobacter PCR Not Detected (NotDetected); Cryptosporidium PCR Not Detected (NotDetected); Cyclospora cayetanensis PCR Not Detected (NotDetected); Entamoeba histolytica PCR Not Detected (NotDetected); Enteroaggregative E.coli(EAEC) Not Detected (NotDetected); Enteropathogenic E.coli (EPEC) Not Detected (NotDetected); Enterotoxigenic E.coli (ETEC) Not Detected (NotDetected); Giardia lamblia PCR Not Detected (NotDetected); Norovirus GI/GII PCR Not Detected (NotDetected); Plesiomonas shigelloides PCR Not Detected (NotDetected); Rotavirus A PCR Not Detected (NotDetected); Salmonella PCR Not Detected (NotDetected); Sapovirus PCR Not Detected (NotDetected); Shiga-like Toxin E.coli (STEC) Not Detected (NotDetected); Shigella/Enteroinvasive E.coli Not Detected (NotDetected); Vibrio cholerae PCR Not Detected (NotDetected); Vibrio species PCR Not Detected (NotDetected); Yersinia enterocolitica PCR Not Detected (NotDetected)
[2023-03-25 09:02] LABS: Cdiff Toxin B Gene (2yr or >) Positive Cdiff Gene (Neg)
[2023-03-25 09:03] LABS: Cdiff Antigen Positive
[2023-03-25 09:20] LABS: Cdiff Toxin A+B Positive Cdiff Toxin (Negative)
--- NOTE | 2023-03-25 10:56 | Urology Progress Note ---
Date of Service March 25, 2023 Assessment & Plan (1) Left ureteral stone: (2) Hydronephrosis, left: (3) UTI (urinary tract infection): Plan 52yo/F admitted with concern for infection and an obstructing left ureteral stone. CT abd pelvis demonstrated an 11x5mm obstructing left UPJ with mild-mod hydro and additional left sided renal stones. -POD #2 s/p cystoscopy, left stent placement. -Febrile at 39.3C, vitals stable. -Labs show a wbc of 11.6 and creatinine 0.88. -Found to be Cdiff positive. Started on Vanco this morning. -UCx grew E.coli, blood cultures prelim no growth x 24hours. -Continues on IV Ceftriaxone. Follow cultures and tailor as culture data becomes available. -Voiding spontaneously, continue to monitor. -Will arrange an outpatient follow-up with our service for definitive stone treatment after the infection has been treated. -Continue supportive care, antibiotic therapy, prn pain management. -Urology will follow peripherally. Please contact us any further questions, concerns, or change in the patient's status. Admission and Anticipated Discharge Date Admission Date: March 23, 2023 Subjective POD #2 s/p cysto, left stent Pt examined at bedside this AM. Awake, resting in bed on arrival. No acute distress. Still does not feel well overall but seems to be a bit better than she was yesterday. Still with some intermittent fevers. Reports loose stools. Tolerated breakfast, no nausea or vomiting. Voiding without issue, some hematuria and dysuria. Review of Systems Constitutional: as per Subjective / HPI Gastrointestinal: as per Subjective / HPI Genitourinary: as per Subjective / HPI Physical Exam Constitutional: no acute distress Respiratory: no respiratory distress and no labored breathing Gastrointestinal (Abdomen): Percussion/Palpation: abdomen soft; abdomen nontender Musculoskeletal: Head/Neck/Chest: normocephalic Neurologic: awake Psychiatric: Orientation: alert, oriented x 3 and cooperative Results & Data Vital Signs (Past 12 Hours) Vital Signs Temp Pulse Pulse Resp BP Pulse Ox O2 Del Method 03/25/23 08:14 37.0 C 71 18 111/70 94 Room Air 03/25/23 08:15 71 03/25/23 03:45 37.1 C 70 18 102/66 94 Room Air 03/25/23 01:02 77 05/02/23 23:41 37.5 C 74 18 107/66 94 Room Air PG Care Time/CCT Total # of Minutes Spent Total Time Spent with Patient: Total time spent is greater than 50% in coordination of care (as documented) at patient's floor/unit and/or counseling patient: Coding Level of Care Code 56976 SUB INP/OBS CARE 2/35MIN Diagnoses Left ureteral stone N20.1 Hydronephrosis, left N13.30 UTI (urinary tract infection) N39.0
[2023-03-25] MEDS: ACETAMINOPHEN 500 MG TAB PO PRN ×2 (11:10→20:03)
[2023-03-25] MEDS: RASPBERRY SYRUP 5 ML UDP PO SCH ×3 (12:13→23:34)
[2023-03-25] MEDS: VANCOMYCIN HCL 250 MG/5 ML SOLN PO SCH ×3 (12:13→23:34)
[2023-03-25] MEDS: cefTRIAXone SODIUM 2,000 MG in DEXTROSE 5% 50 ML IV SCH (15:04)
[2023-03-25] MEDS: LORATADINE 10 MG TAB PO SCH (15:06)
--- NOTE | 2023-03-25 15:14 | Hospitalist Progress Note ---
Date of Service March 25, 2023 Assessment & Plan (1) Pyelonephritis: Plan: Left pyelonephritis present on admission from obstructing left stone. E. coli, pansensitive, isolated in the urine. Continue Rocephin, day 3. Appreciate urology consultation and recommendations. Cystoscopy with left ureter stent placement was completed on admission. (2) Ureterolithiasis: Plan: Obstructing left ureter stone with associated UTI and left hydronephrosis. Urology consultation appreciated. Left ureteral stent has been placed (3) Hydronephrosis, left: Plan: Due to obstructing left ureter stone. Left stent has been placed. Appreciate urology consultation and recommendations (4) Tobacco use: Plan: Smoking cessation advised (5) Left ureteral stone: Plan: Urology consultation and recommendations appreciated. Cystoscopy has been performed with placement of left ureter stent (6) UTI (urinary tract infection): Plan: E. coli isolated. Pansensitive. Continue Rocephin, day 3 (7) Intrinsic asthma: Plan: Stable. Inhalers as needed (8) Acute kidney injury: Plan: Mild. Resolved with IV fluids. Serial labs (9) C. difficile enteritis: Plan: Oral vancomycin therapy started. Day 1 (10) Eustachian tube dysfunction: Plan: Loratadine ordered. Right side Plan Anticipate eventual discharge to home Admission and Anticipated Discharge Date Admission Date: March 23, 2023 Subjective Alert and oriented. She is having diarrhea and unfortunately C. difficile toxin assay is positive. She is now on oral vancomycin. Urine culture isolate is E. coli which is pansensitive. Blood cultures remain negative to date. We will continue intravenous Rocephin, day 3. She is complaining of a right earache which is probably eustachian tube dysfunction. Loratadine has been ordered. Review of Systems Review of Systems: Constitutional-intermittent low-grade fever ENT-no blurred vision, no double vision, no epistaxis, no sore throat. Right otalgia Respiratory-no cough, no wheezing, no shortness of breath Cardiac-no palpitations, no chest pain, no syncope GI-no nausea, vomiting, melena, hematochezia. Watery diarrhea -left flank discomfort improved after stent placement. No hematuria Musculoskeletal-no joint pain, no muscle tenderness Skin-no bruising, no rashes, no pruritus Neuro-no isolated weakness, no paresthesia, no weakness Psych-no depression, no anxiety Physical Exam Physical Exam: General-alert and oriented x3, no fevers, no chills HEENT-head atraumatic and normocephalic, pupils equal and reactive to light, extraocular muscles intact Neck-no lymphadenopathy or thyromegaly, trachea midline Chest-clear to auscultation percussion. No rales wheezing or rhonchi Cardiac-regular rate and rhythm, normal S1 and S2 Abdomen-normal bowel sounds, diffuse mild tenderness. No rebound or guarding. No hepatosplenomegaly Extremities-no cyanosis, clubbing, or edema Neuro-cranial nerves II through XII intact, motor and sensory function within normal limits, strength symmetrical , no focal deficits Psych-normal affect, normal mood Results & Data Results & Data Vital Signs (Past 12 Hours) Vital Signs Temp Pulse Pulse Resp BP Pulse Ox O2 Del Method 03/25/23 11:07 39.3 C H 85 20 122/68 93 Room Air 03/25/23 08:14 37.0 C 71 18 111/70 94 Room Air 03/25/23 08:15 71 03/25/23 03:45 37.1 C 70 18 102/66 94 Room Air Laboratory Results 03/25/23 06:45 03/25/23 06:45 PG Care Time/CCT Total # of Minutes Spent Total Time Spent with Patient: Total time spent is greater than 50% in coordination of care (as documented) at patient's floor/unit and/or counseling patient: Coding Level of Care Code 43069 SUB INP/OBS CARE 3/50MIN Diagnoses Pyelonephritis N12 Ureterolithiasis N20.1 Hydronephrosis, left N13.30 Tobacco use Z72.0 Left ureteral stone N20.1 UTI (urinary tract infection) N39.0 Intrinsic asthma J45.909 Acute kidney injury N17.9 C. difficile enteritis A04.72 Eustachian tube dysfunction H69.80
[2023-03-26] MEDS: NSS + 20MEQ KCL 20 MEQ/1,000 ML BAG IV SCH ×3 (01:30→21:19)
[2023-03-26] MEDS: VANCOMYCIN HCL 250 MG/5 ML SOLN PO SCH ×3 (05:22→18:25)
[2023-03-26] MEDS: HEPARIN SOD 5,000 UNIT/0.5 ML VIAL SQ SCH ×3 (05:22→21:18)
[2023-03-26] MEDS: RASPBERRY SYRUP 5 ML UDP PO SCH ×3 (05:22→18:25)
[2023-03-26 08:19] LABS: Basophils # (auto) 0.02 K/uL (0-0.2); Basophils % (auto) 0.2 %; Eosinophils # (auto) 0.07 K/uL (0-0.50); Eosinophils % (auto) 0.8 %; Immature Granulocytes # (auto) 0.03 K/uL (0.01-0.20); Immature Granulocytes % (auto) 0.3 %; Lymphocytes % (auto) 19.7 %; Mean Corpuscular Hemoglobin 31.3 pg (25.0-34.0); Mean Corpuscular Hgb Conc 35.5 g/dL (32.0-36.0); Mean Corpuscular Volume 88.1 fL (80.0-100.0); Mean Platelet Volume 9.7 fL (9.4-12.4); Monocytes # (auto) 0.92 K/uL (0.11-0.59); Monocytes % (auto) 10.1 %; Neutrophils % (auto) 68.9 %; Platelet Count 212 K/uL (130-400); RDW Coefficient of Variation 13.6 % (11.5-14.5); RDW Standard Deviation 43.8 fL (36.4-46.3); Red Blood Count 3.52 M/uL (4.20-5.40); White Blood Count 9.14 K/ul (4.8-10.8)
[2023-03-26 08:29] LABS: BUN Creatinine Ratio 13.9 (10-20); Calcium 7.7 mg/dl (8.6-10.3); Creatinine Clr Calc Pharmacy 99.8 ml/min; Est GFR (African American) 113.2 ml/min; Est GFR (Non-African American) 97.7 ml/min; Potassium 3.8 mmol/L (3.5-5.1)
[2023-03-26] MEDS: LORATADINE 10 MG TAB PO SCH (11:55)
--- NOTE | 2023-03-26 14:42 | Hospitalist Progress Note ---
Date of Service March 26, 2023 Assessment & Plan (1) Pyelonephritis: Plan: Left pyelonephritis present on admission from obstructing left stone. E. coli, pansensitive, isolated in the urine. Continue Rocephin, day 4. Appreciate urology consultation and recommendations. Cystoscopy with left ureter stent placement was completed on admission. (2) Ureterolithiasis: Plan: Obstructing left ureter stone with associated UTI and left hydronephrosis. Urology consultation appreciated. Left ureteral stent has been placed. She probably will need outpatient lithotripsy procedure at some point (3) Hydronephrosis, left: Plan: Due to obstructing left ureter stone. Left stent has been placed. Appreciate urology consultation and recommendations. She probably will need outpatient lithotripsy procedure at some point (4) Tobacco use: Plan: Smoking cessation advised (5) Left ureteral stone: Plan: Urology consultation and recommendations appreciated. Cystoscopy has been performed with placement of left ureter stent (6) UTI (urinary tract infection): Plan: E. coli isolated. Pansensitive. Continue Rocephin, day 4 (7) Intrinsic asthma: Plan: Stable. Inhalers as needed (8) Acute kidney injury: Plan: Mild. Resolved with IV fluids. Serial labs (9) C. difficile enteritis: Plan: Oral vancomycin therapy started. Day 2. Stool frequency has diminished. (10) Eustachian tube dysfunction: Plan: Loratadine started on March 25. Right side. Improved Plan Anticipate eventual discharge to home. Hopefully tomorrow, 03/27, on oral antibiotic and oral vancomycin Admission and Anticipated Discharge Date Admission Date: March 23, 2023 Subjective Alert and oriented. She looks and feels better. She states the diarrhea stools have decreased in frequency and are becoming more solid. Probiotic has been started. She remains on intravenous Rocephin, day 4, for E. coli isolated in the urine. Oral vancomycin day 2. Right ear eustachian dysfunction has improved with loratadine. Creatinine has improved to 0.7. Hopefully she can go home tomorrow, March 27 Review of Systems Review of Systems: Constitutional-intermittent low-grade fever ENT-no blurred vision, no double vision, no epistaxis, no sore throat. Right otalgia Respiratory-no cough, no wheezing, no shortness of breath Cardiac-no palpitations, no chest pain, no syncope GI-no nausea, vomiting, melena, hematochezia. Watery diarrhea -left flank discomfort improved after stent placement. No hematuria Musculoskeletal-no joint pain, no muscle tenderness Skin-no bruising, no rashes, no pruritus Neuro-no isolated weakness, no paresthesia, no weakness Psych-no depression, no anxiety Physical Exam Physical Exam: General-alert and oriented x3, no fevers, no chills HEENT-head atraumatic and normocephalic, pupils equal and reactive to light, extraocular muscles intact Neck-no lymphadenopathy or thyromegaly, trachea midline Chest-clear to auscultation percussion. No rales wheezing or rhonchi Cardiac-regular rate and rhythm, normal S1 and S2 Abdomen-normal bowel sounds, diffuse mild tenderness. No rebound or guarding. No hepatosplenomegaly Extremities-no cyanosis, clubbing, or edema Neuro-cranial nerves II through XII intact, motor and sensory function within normal limits, strength symmetrical , no focal deficits Psych-normal affect, normal mood Results & Data Results & Data Vital Signs (Past 12 Hours) Vital Signs Temp Pulse Pulse Resp BP Pulse Ox O2 Del Method 03/26/23 12:22 37.4 C 65 17 132/79 97 Room Air 03/26/23 08:06 37.7 C H 68 17 116/64 95 Room Air 03/26/23 07:32 62 03/26/23 03:49 37.1 C 65 18 115/68 97 Room Air Laboratory Results 03/26/23 07:33 03/26/23 07:33 PG Care Time/CCT Total # of Minutes Spent Total Time Spent with Patient: Total time spent is greater than 50% in coordination of care (as documented) at patient's floor/unit and/or counseling patient: Coding Level of Care Code 26365 SUB INP/OBS CARE 3/50MIN Diagnoses Pyelonephritis N12 Ureterolithiasis N20.1 Hydronephrosis, left N13.30 Tobacco use Z72.0 Left ureteral stone N20.1 UTI (urinary tract infection) N39.0 Intrinsic asthma J45.909 Acute kidney injury N17.9 C. difficile enteritis A04.72 Eustachian tube dysfunction H69.80
[2023-03-26] MEDS: cefTRIAXone SODIUM 2,000 MG in DEXTROSE 5% 50 ML IV SCH (15:25)
[2023-03-26] MEDS: ACETAMINOPHEN 500 MG TAB PO PRN ×2 (15:25→22:48)
[2023-03-26] MEDS: SACCHAROMYCES BOULARDII 250 MG CAP PO SCH (15:30)
[2023-03-27] MEDS: VANCOMYCIN HCL 250 MG/5 ML SOLN PO SCH ×3 (00:21→11:53)
[2023-03-27] MEDS: RASPBERRY SYRUP 5 ML UDP PO SCH ×3 (00:21→11:51)
[2023-03-27 06:20] LABS: Hematocrit (blood only) 35.1 % (37.0-47.0); Hemoglobin 12.3 g/dl (12.0-16.0); Mean Corpuscular Hemoglobin 31.1 pg (25.0-34.0); Mean Corpuscular Volume 88.6 fL (80.0-100.0); Mean Platelet Volume 9.2 fL (9.4-12.4); Platelet Count 248 K/uL (130-400); RDW Coefficient of Variation 13.4 % (11.5-14.5); RDW Standard Deviation 43.8 fL (36.4-46.3); Red Blood Count 3.96 M/uL (4.20-5.40); White Blood Count 7.69 K/ul (4.8-10.8)
[2023-03-27] MEDS: HEPARIN SOD 5,000 UNIT/0.5 ML VIAL SQ SCH (06:37)
[2023-03-27] MEDS: NSS + 20MEQ KCL 20 MEQ/1,000 ML BAG IV SCH (06:37)
[2023-03-27 06:42] LABS: Basophils # (auto) 0.04 K/uL (0-0.2); Basophils % (auto) 0.5 %; Eosinophils # (auto) 0.13 K/uL (0-0.50); Eosinophils % (auto) 1.7 %; Immature Granulocytes # (auto) 0.05 K/uL (0.01-0.20); Immature Granulocytes % (auto) 0.7 %; Lymphocytes # (auto) 2.97 K/uL (1.2-3.4); Lymphocytes % (auto) 38.6 %; Monocytes % (auto) 9.1 %; Neutrophils % (auto) 49.4 %; RBC Morphology Unremarkable
[2023-03-27 06:46] LABS: Calcium 8.5 mg/dl (8.6-10.3); Creatinine Clr Calc Pharmacy 93.4 ml/min; Est GFR (African American) 104.3 ml/min; Potassium 4.5 mmol/L (3.5-5.1)
[2023-03-27] MEDS: SACCHAROMYCES BOULARDII 250 MG CAP PO SCH (08:09)
[2023-03-27] MEDS: LORATADINE 10 MG TAB PO SCH (08:09)
--- NOTE | 2023-03-27 12:34 | Discharge Summary ---
Date of Service March 27, 2023 Admission HPI Per Admitting Provider Estrellita seen at the bedside in the ER. She reports she has had kidney stones before, last 1 year ago but they have never required treatment and has always been able to pass the stones on her own. She reports that she has had treatment for UTIs in the past, but her current episode seems much worse. She reports the last 4 days she has had progressively worsening pain in her left lower abdomen which radiates into her left back and is with CVA tenderness. She had fever, chills, shaking sweats for at least the last 2 days. She is not sure what color her urine is, has not been eating and drinking well due to nausea. No diarrhea. She has history of asthma with some chest tightness, in the last day she has had some chest tightness which feels different than her normal asthma tightness but denies pain. This does not radiate to her neck or shoulder. No prior cardiac history, heart failure, or heart attacks. No history of MIs in the family. She does use tobacco products which she has not used recently due to feeling poor and declines a patch. Rare intermittent alcohol use, no sustained use. No antibiotic allergies. Medical History: Reviewed. Past history of kidney stones. Takes no chronic medications. Uses albuterol as needed for exercise-induced asthma, has not needed this recently. Denies other medications. Medications: Reviewed Surgical History: Reviewed Family history: Reviewed Allergies: Reviewed Social History: Tobacco use, no alcohol use Code Status: Full code Principal Diagnosis Obstructing left ureter stone, left hydronephrosis, left pyelonephritis, E. coli urinary tract infection, acute kidney injury, C. difficile enteritis, right eustachian dysfunction Discharge Exam General-alert and oriented x3, no fevers, no chills HEENT-head atraumatic and normocephalic, pupils equal and reactive to light, extraocular muscles intact Neck-no lymphadenopathy or thyromegaly, trachea midline Chest-clear to auscultation percussion. No rales wheezing or rhonchi Cardiac-regular rate and rhythm, normal S1 and S2 Abdomen-normal bowel sounds, diffuse mild tenderness. No rebound or guarding. No hepatosplenomegaly Extremities-no cyanosis, clubbing, or edema Neuro-cranial nerves II through XII intact, motor and sensory function within normal limits, strength symmetrical , no focal deficits Psych-normal affect, normal mood Discharge Data Allergies Allergy/AdvReac Type Severity Reaction Status Date / Time No Known Allergies Allergy Verified 03/23/23 17:51 Consultations 03/23/23 14:25 ED Decision to Admit Stat 03/23/23 15:37 Consult Urology Stat 03/23/23 16:27 Consult Urology Routine Procedures Performed Operation Date: 03/23/23 12:55 Actual Procedures p Cystoscopy, Left Ureteral Stent(Left) - Antoni Mayers MD Ordered Studies 03/23/23 FL KUB Routine 03/23/23 12:47 CT stones [CT abd pelvis wo con] Stat Hospital Course (1) Pyelonephritis: Left pyelonephritis present on admission from obstructing left stone. E. coli, pansensitive, isolated in the urine. Treated while hospitalized with intravenous Rocephin. She will be discharged home on Keflex. Appreciate urology consultation and recommendations. Cystoscopy with left ureter stent placement was completed on admission. She will probably need lithotripsy in the near future (2) Ureterolithiasis: Obstructing left ureter stone with associated UTI and left hydronephrosis. Urology consultation appreciated. Left ureteral stent has been placed. She probably will need outpatient lithotripsy procedure at some point (3) Hydronephrosis, left: Due to obstructing left ureter stone. Left stent has been placed. Appreciate urology consultation and recommendations. She probably will need outpatient lithotripsy procedure at some point (4) Tobacco use: Smoking cessation advised (5) Left ureteral stone: Urology consultation and recommendations appreciated. Cystoscopy has been performed with placement of left ureter stent (6) UTI (urinary tract infection): E. coli isolated. Pansensitive. Treated while hospitalized with intravenous Rocephin. Will treat with cephalexin at discharge (7) Intrinsic asthma: Stable. Inhalers as needed (8) Acute kidney injury: Mild. Resolved with IV fluids. Serial labs (9) C. difficile enteritis: Oral vancomycin therapy has been started. Day 3 of . Diarrhea has resolved (10) Eustachian tube dysfunction: Loratadine started on March 25. Right side. Resolved Plan Home today, March 27. Continue oral Keflex and vancomycin. Follow-up as an outpatient with urology. She may return to work on Thursday, March 30 Total Time Total Time Spent Total Time Spent (In Minutes): 40 minutes Discharge Plan Discharge Items Patient Disposition: Home - Self-Care Reason For Visit: UTI, 11MM L UPJ STONE Discharge Diagnosis: Obstructing left ureter stone, left hydronephrosis, left pyelonephritis, E. coli UTI, acute kidney injury, C. difficile enteritis, right eustachian tube dysfunction with right otalgia Activity: Resume your previous activity Non-emergency contact: Primary Care Provider Call non-emergency contact if: you have any medication questions and your symptoms worsen Follow-up/Referrals: Arik Esquivel CRNP [Nurse Practitioner] - 06/02/23 11:00 am (Please arrive 15 minutes prior to appointment time) Sobia Duran PA-C [Physician Process Tank Tender] - 03/31/23 10:40 am (Please arrive 15 minutes prior to appointment time. ) PCP,NO [Primary Care Provider] - Diet: Regular Addtl Attending Provider Instructions: Take cephalexin and vancomycin as directed. Follow-up with urology for scheduling of lithotripsy Pending Studies at Discharge: No Stand-Alone Forms: [employer], Smoking Cessation, Work/School Release Medications and DC Order Prescriptions: New vancomycin 125 mg capsule 125 mg PO QID 7 Days Qty: 28 0RF cephalexin 500 mg capsule 500 mg PO TID 7 Days Qty: 21 0RF Continued albuterol sulfate 90 mcg/actuation HFA aerosol inhaler 1 inh INHALATION DIRECTED PRN (Reason: Shortness Of Breath) Patient Comments: Per pt, she uses inhaler once in the morning and once at night. Discharge Orders: Discharge Order (Routine); Ordered 03/27/23 Ordered By: Kamran Díaz Admission Data Admit Date/Time: 03/23/23 14:50 Attending Provider: Kamran Díaz Admit Provider: Federico Stockton Primary Care Provider: PCP,NO Other Providers: Antoni Mayers ; Federico [place] Coding Level of Care Code 90072 INP/OBS DISCH >30 MIN Diagnoses Pyelonephritis N12 Ureterolithiasis N20.1 Hydronephrosis, left N13.30 Tobacco use Z72.0 Left ureteral stone N20.1 UTI (urinary tract infection) N39.0 Intrinsic asthma J45.909 Acute kidney injury N17.9 C. difficile enteritis A04.72 Eustachian tube dysfunction H69.80
== END 2023-03-27 13:47 | disposition home or self-care (01) | DRG 660 ==
LOC: ED 11:57 → SUATTDRO 14:50 → 2W 14:50

== ENCOUNTER 2023-10-13 10:59 | Observation (INO) ==
--- NOTE | 2023-09-25 13:50 | PAT Medication Instructions ---
Medication Instructions Date of Service September 25, 2023 Home Medications Medication Instructions Recorded rosuvastatin 20 mg tablet 20 mg PO HS #90 tabs 06/03/23 montelukast 10 mg tablet 10 mg PO QPM #90 tabs 06/24/23 albuterol sulfate 90 mcg/actuation aerosol inhaler 1 inh inhalation DIRECTED PRN ibuprofen 200 mg tablet 400 mg PO UD PRN lactobacillus combination no.4 3 billion cell capsule (Probiotic) 3,000 mmu cells PO HS multivitamin-ferrous fumarate-folic acid 18 mg-400 mcg tablet ([employer]) 1 tab PO HS rosuvastatin 20 mg tablet 20 mg PO HS montelukast 10 mg tablet 10 mg PO QPM Continue as directed albuterol sulfate 90 mcg/actuation aerosol inhaler 1 inh inhalation DIRECTED PRN(if needed) ASK your surgeon for instructions ibuprofen 200 mg tablet 400 mg PO UD PRN Take evening before surgery lactobacillus combination no.4 3 billion cell capsule (Probiotic) 3,000 mmu cells PO HS multivitamin-ferrous fumarate-folic acid 18 mg-400 mcg tablet ([employer]) 1 tab PO HS rosuvastatin 20 mg tablet 20 mg PO HS montelukast 10 mg tablet 10 mg PO QPM Other Notes NOTHING TO EAT OR DRINK AFTER MIDNIGHT. If you have any questions please call us at [phone] or [phone] or [phone] or [phone]
--- NOTE | 2023-10-02 09:50 | Anesthesiology Consultation ---
Date of Service October 02, 2023 Assessment & Plan (1) Encounter for pre-operative examination: - check coags STAT am DOS. - coags hemolyzed per lab. Discussed with Dr. Powell who advised coags can be checked DOS. - Outpatient joint assessment: Patient is currently scheduled for inpatient pathway. If re-evaluated and patient/surgeon requests outpatient pathway, patient is acceptable candidate for outpatient joint program from anesthesia standpoint pending surgeon's office assessment of pt motivation/ support/completion of same day joint program preop requirements. Chart Review Chart Review: Acceptable Risk for Surgery and Patient seen in Pre Admission Testing Teaching & Discussion Pre-Anesthesia Teaching/Discussion Notes: Instructed NPO after midnight before surgery, except medications with 15 cc of water. Medication instructions provided according to the PAT guidelines. History Surgery Operation Date: 10/13/23 12:30 Proposed Procedures p Right Total Hip Arthroplasty - Reza Finney MD Height/Weight Height: 5 ft 6 in Weight: 77.8 kg Allergies Allergy/AdvReac Type Severity Reaction Status Date / Time No Known Allergies Allergy Verified 09/25/23 10:48 Medications Home Medications Medication Instructions Recorded Confirmed Last Taken albuterol sulfate 90 mcg/actuation 1 inh inhalation DIRECTED PRN 03/23/23 09/25/23 04/21/23 07:30 aerosol inhaler ASTHMA ibuprofen 200 mg tablet 400 mg PO UD PRN Pain 04/08/23 09/25/23 04/19/23 lactobacillus combination no.4 3 3,000 mmu cells PO HS 04/10/23 09/25/23 04/20/23 18:30 billion cell capsule (Probiotic) multivitamin-ferrous 1 tab PO HS 04/10/23 09/25/23 04/20/23 21:00 fumarate-folic acid 18 mg-400 mcg tablet ([employer]) rosuvastatin 20 mg tablet 20 mg PO HS #90 tabs 06/03/23 09/25/23 Unknown montelukast 10 mg tablet 10 mg PO QPM #90 tabs 06/24/23 09/25/23 Unknown Past Medical History Medical History Hyperlipidemia Asthma, mild intermittent, poorly controlled pt states she uses rescue inhaler prn (rarely)-last use several months ago Kidney stones hx of Tobacco use Patient denies h/o stroke, seizures, heart attack, heart failure, DM, HTN, blood clots/DVTs or blood transfusions. Exercise / Class Metabolic Activity III < 4 Walking/Shop/Light housework (denies chest discomfort or shortness of breath with usual activities, ambulates with cane) Past Family History Family History Mother , diagnoses at age of 40 at age 46 to breast CA. Borderline diabetes Breast cancer Grandfather (Maternal) Myocardial infarction Father Cancer Other No family history of adverse response to anesthesia Denies family history of Ovarian cancer Prostate cancer Colorectal cancer Past Surgical History Surgical History (Updated 10/02/23 @ 10:05 by Shyanne Gambino PA-C) History of tubal ligation S/P cystoscopy with ureteral stent placement last 04/21/23 @ [facility] Hx of LASIK History of bilateral breast reduction surgery H/O wisdom tooth extraction Past Anesthesia History No Hx of Anesthesia Complications and No Family Hx of Anesthesia Complications History of PONV No Hx of PONV and No Hx of Motion Sickness Social History Smoking Status: Current every day smoker (-advised) tobacco type: cigarettes Smoking cigarettes per day: 0.5PPD/ADVISED NPO Do You Dip or Chew Tobacco: No Hx Alcohol Use: Yes Alcohol type: beer alcohol intake frequency: holidays/special occasions only Hx Substance Use: No substance use type: does not use Review of Systems Patient denies chest pain, shortness of breath, dyspnea on exertion, snoring, witnessed apneas, reflux, fever, chills, cough, wheezing, or palpitations. Physical Exam Vital Signs Vitals BP 118/75 P 69 TEMP 98.4 SP02 97% on RA RESP 17 Physical Patient resting comfortably in chair in no acute distress, alert and oriented, responding appropriately throughout visit Full cervical extension range of motion without pain TMD 3.5 finger breadths Mallampati Score 2 Dentition: lower front teeth loose, denies chipped teeth, caps/crowns, implants or bridges Lungs: normal respiratory effort. Good air movement, clear throughout to auscultation, no adventitious breath sounds Cardiac: regular rate and rhythm, no murmurs noted Carotid arteries: negative bruit bilat Lab Results Anesthesia Preop Results Results Anesthesia Widget: WBC 8.24 K/ul (4.8-10.8) 10/02/23 Hgb 14.2 g/dl (12.0-16.0) 10/02/23 Hct 42.2 % (37.0-47.0) 10/02/23 Plt 268 K/uL (130-400) 10/02/23 Na 141 mmol/L (136-145) 10/02/23 K 4.2 mmol/L (3.5-5.1) 10/02/23 Cl 107 mmol/L (98-107) 10/02/23 CO2 28 mmol/L (21-32) 10/02/23 BUN 18 mg/dl (6-23) 10/02/23 Creat 0.72 mg/dl (0.6-1.2) 10/02/23 Glucose Level 90 mg/dl (70-99(Fasting)) 10/02/23 Blood Type A Positive 10/02/23 Antibody Screen NEGATIVE 10/02/23 Testing Electrocardiogram Date: 03/23/23 NSR, rate 91 bpm Chest X-Ray Date: 04/09/23 No acute cardiopulmonary findings Other Testing Abdomen pelvis CT 03/23/23 1. An 11 x 5 mm obstructing stone within the left ureteropelvic junction resulting in mild to moderate left-sided hydronephrosis. 2. Left-sided nephrolithiasis. 3. Cholelithiasis. 4. 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
[~2023-10-13 10:59] MED LIST: ACETAMINOPHEN 500 MG TAB PO SCH; BUPIVACAINE 0.5 % 5 MG/1 ML PF 10ML VIAL ONE; CeleBREX 200 MG CAP PO SCH; FAMOTIDINE 20 MG TAB PO SCH; LR 500ML BOLUS, THEN 15ML/HR IV SCH; LR 60ML/HR IV SCH; METOCLOPRAMIDE HCL 10 MG TABLET PO SCH; Scopolamine 1 MG TDSY TD SCH; TRANEXAMIC ACID 1,000 MG **IV Pre-op IV SCH; ceFAZolin 2000MG 2,000 MG/15 ML SYR IV SCH; dexAMETHasone**PF** 10 MG/ML VIAL IV SCH
--- NOTE | 2023-10-13 11:28 | History & Physical Bridge Note ---
Date of Service October 13, 2023 History & Physical Bridge Note I have examined the patient, reviewed the History & Physical and in the interval since the performance of the History & Physical I have noted the following changes of clinical significance: no changes noted
[2023-10-13 12:11] LABS: INR 1.1 (0.9-1.1); Partial Thromboplastin Time 27.9 Seconds (21.0-31.0); Prothrombin Time 12.1 Seconds (9.0-12.0)
[2023-10-13] MEDS ORDERED: MoRPHine SULFATE PF 1 MG/ML 10 ML AMP/VIAL ONE (12:18)
[2023-10-13] MEDS ORDERED: MIDAZOLAM HCL 1 MG/ML 2ML VIAL ONE (12:18)
[2023-10-13] MEDS ORDERED: PROPOFOL IV EMULSION 10 MG/ML 20 ML VIAL IV ONE (12:22)
[2023-10-13] MEDS ORDERED: ONDANSETRON INJ 2 MG/ML 2 ML VIAL ONE (12:22)
[2023-10-13] MEDS ORDERED: BUPIVACAINE/EPINEPHRINE 0.5% MPF 1:200,000 30 ML VIAL ONE (13:25)
[2023-10-13] MEDS ORDERED: ePHEDrine sulfate 50 MG/ML AMP IV PRN (13:31)
[2023-10-13] MEDS ORDERED: diphenhydrAMINE 50 MG/ML VIAL IV PRN (13:31)
[2023-10-13] MEDS ORDERED: NALOXONE HCL 1 MG in SODIUM CHLORIDE 0.9% 1,000 ML IV PRN (13:31)
[2023-10-13] MEDS ORDERED: NALOXONE HCL 0.08 MG in SYRINGE 1.8 ML IV PRN (13:31)
[2023-10-13] MEDS ORDERED: MoRPHine SULFATE PF 1 MG/ML 10 ML AMP/VIAL INT SPINAL ONE (13:31)
[2023-10-13] MEDS ORDERED: ONDANSETRON INJ 2 MG/ML 2 ML VIAL IV PRN ×2 (13:31→17:02)
[2023-10-13] MEDS ORDERED: MEPERIDINE HCL 25 MG/ML CARP/VIAL IV PRN (13:31)
[2023-10-13] MEDS ORDERED: LACTATED RINGER'S 500 ML IV PRN (13:31)
[2023-10-13] MEDS ORDERED: NALBUPHINE HCL 5 MG in SYRINGE 0 ML IV PRN (13:31)
[2023-10-13] MEDS ORDERED: NALOXONE HCL 0.4 MG/1 ML VIAL/CARP IV PRN ×2 (13:31→17:02)
[2023-10-13] MEDS ORDERED: SODIUM CHLORIDE 0.9% 1,000 ML IV SCH (13:45)
[2023-10-13] MEDS ORDERED: NO NARCOTICS OR SEDATIVES SCH (13:45)
[2023-10-13] MEDS ORDERED: DC INTRASPINAL MORPHINE SCH (13:45)
[2023-10-13] MEDS ORDERED: ePHEDrine sulfate 50 MG/5 ML SYR ONE (14:04)
--- NOTE | 2023-10-13 15:27 | Operative Report ---
PG Post Operative Report Pre & Post Diagnosis Operation Date: 10/13/23 12:30 Pre-Op Diagnosis: Right Hip Avascular Necrosis Post-Op Diagnosis: Right Hip Avascular Necrosis I identified the patient and participated in the time-out.: Yes Procedure Operation Date: 10/13/23 12:30 Actual Procedures p Right Total Hip Arthroplasty, Uncemented(Right) - Reza Finney MD Surgeon Reza Finney MD Registration Coordinator Justin Beal PA-C Estimated Blood Loss 200 Findings Consistent with Post-Op Diagnosis Specimens Right femoral head sent for pathology Anesthesia Type Spinal MAC Complications none Indications Patient is a 53-year-old female who developed progressive right hip avascular necrosis. She was initially asymptomatic but over the past 6 months become markedly symptomatic where she is having trouble ambulating. X-rays and MRI showed a very large segment avascular necrosis. Treatment options were explained and she elected proceed with total hip arthroplasty is most predictable operation. Description of Procedure Operative implants consist of: 1. Biomet G7 size 52 mm acetabular shell. 2. 6.5 cancellous acetabular screws were 30 mm in length and 135 mm length. 3. [place] material handler loader. 4. Highly crossing polyethylene liner with a 52 mm outer diameter 36 mm inner diameter. 5. DePuy coli size 10 KLA femoral stem. 6. +1.5/36 mm ceramic articular ball. The patient was taken to the operating, identified, placed on the operating table in the supine position. Contractures were appropriately padded. IV antibiotics 5 by anesthesia team. A spinal anesthetic and been implemented holding area. A Cabello catheter was placed in sterile fashion. The patient was then placed in the left lateral decubitus position. An axillary roll was placed. Distal Birkett position was used for positioning. The left hip and leg were then prepped and draped in usual sterile fashion. A posterolateral approach to the right hip was then performed through a curvilinear incision centered over the greater trochanter. Sharp dissection Through subcutaneous tissue down to level the IT band and gluteal fascia with IT band and gluteal fascia incised longitudinally in line with skin incision. The underlying greater bursa was excised. The piriformis and external rotators along with the posterior hip joint capsule was then released as a single layer. Great care was taken throughout the procedure to protect the sciatic nerve at all times. The hip was internally rotated and dislocated. Femoral neck osteotomy cut was made with a Final Cut about 15 mm above the lesser trochanter. Femoral head was removed and sent for pathology. The femur was retracted anteriorly. Attention drawn the acetabulum. The acetabular labrum was excised. The pulmonary fat was excised. Sequential reaming the acetabulum was then performed again with a size 43 and progressing up to a 51 mm reamer. I then reamed the lobe with a 52 reamer. A 52 mm Biomet G7 acetabular shell was then placed and about 40 degrees lateral opening and 20 degrees of anteversion. It was fixed with two 6.5 cancellous acetabular screws. Trial liner was placed. I tensioned on the femur. The proximal femur was then with a [employer] cutter followed by canal finder. I then broached beginning with size 8 and progressing up to 10. Get excellent fit of the tendon. She had a very good cocks cancellous soft tissue envelope. I then trialed the hip. The hip was fully stable. The +5 articular ball just seem to be a bit tight and to increase a leg length may be slightly. We therefore used a +1.5 articular ball. He was fully stable in full extension and external rotation and flexion to 90 degrees internal rotation to over [address] I elected to place these implants. All trial implants were removed. An apex eliminator was placed. Highly cross- linked polyethylene liner was placed. A size 10 KLA femoral stem was impacted in position. A +1.5/36 mm ceramic articular ball was placed. Hip was located and was again found to be stable. Attention drawn to our closing. The wound was irrigated closed pulsatile washer [place]. I did inject locally with 60 cc of half percent Marcaine with epinephrine. The posterior capsule and external rotators then repaired through drill holes in the posterior trochanter with #2 Tycron suture. The IT band gluteal fascia then closed with #1 PDS suture in running fashion. Subcutaneous tissues then closed with 2 layers of th e deep layer #1 Vicryl suture and subcutaneous tissues with 2 Dexon suture in a buried interrupted fashion. Skin was closed skin naty. Leg was then cleaned and dried and sterile dressing with Xeroform, 4 fours, ABD pad, foam tape was applied. The patient then transferred to the recovery in stable condition. Patient tolerated procedure well and there were no complications. Justin Beal, my physician automotive service assistant, was present for the entire procedure. His assistance was required for proper patient positioning, prepping and draping, surgical exposure, retraction, performing the technical details of the operation, placement of implants, closure of the incision site and placement of the sterile postoperative bandage. I attest to the content of the Intraoperative Record and any orders documented therein. Any exceptions are noted below.
--- NOTE | 2023-10-13 16:01 | Anesthesiology Progress Note ---
Date of Service October 13, 2023 Anesthesia Post Procedure Vital Signs Vital Signs: Temp Pulse Pulse Resp BP Pulse Ox O2 Del Method 10/13/23 15:50 36.4 C L 63 12 101/49 L 96 Room Air 10/13/23 15:40 65 16 102/47 L 100 Oxymask 10/13/23 15:30 63 15 111/53 L 100 Oxymask 10/13/23 15:20 36.0 C L 68 15 96/55 L 99 Oxymask 10/13/23 11:36 36.7 C 78 16 116/88 96 Room Air O2 Flow Rate 10/13/23 15:50 10/13/23 15:40 2 10/13/23 15:30 4 10/13/23 15:20 6 10/13/23 11:36 Pain Intensity Right Hip: Pain Intensity: 2 Transfer of Care Handoff Completed per policy Notes Mental Status: alert / awake / arousable Patient Amnestic to Procedure: Yes Nausea / Vomiting: adequately controlled Pain: adequately controlled Airway Patency, RR, SpO2: stable & adequate BP & HR: stable & adequate Hydration State: stable & adequate Neuraxial Anesthesia: was administered and sensory block is resolving Anesthetic Complications: no major complications apparent and Pt Satisfied with anesthetic care
--- NOTE | 2023-10-13 16:22 | XRay Report ---
AP PELVIS, CROSSTABLE LATERAL RIGHT HIP History: Right total hip arthroplasty. Degenerative arthritis. Postop. FINDINGS: The patient is status post a right total hip arthroplasty. The hardware is intact. No fract ure or dislocation. Skin naty are in place. IMPRESSION: Right total hip arthroplasty. No evidence for hardware complication ACT 112: Negative or not required by law. Electronically signed by: Vish Epps M.D. 10/13/2023 4:20 PM
[2023-10-13] MEDS ORDERED: ALUMINUM/MAGNESIUM SUSP 30 ML UDC PO PRN (17:02)
[2023-10-13] MEDS ORDERED: MAGNESIUM HYDROXIDE SUSP 30 ML UDC PO PRN (17:02)
[2023-10-13] MEDS ORDERED: bisacodyL 10 MG SUPP PR PRN (17:02)
[2023-10-13] MEDS ORDERED: ALBUTEROL HFA 8 GM INHALER INH PRN (17:02)
[2023-10-13] MEDS ORDERED: METOCLOPRAMIDE HCL INJ 5 MG/ML 2 ML VIAL IV PRN (17:02)
[2023-10-13] MEDS: Scopolamine CHECK PATCH PLACEMENT SCH (17:04)
[2023-10-13] MEDS: SODIUM CHLORIDE 0.9% 1,000 ML IV SCH (17:18)
[2023-10-13] MEDS: ASCORBIC ACID 500 MG TAB PO SCH (18:03)
[2023-10-13] MEDS: DOCUSATE SODIUM 100 MG CAP PO SCH (20:42)
[2023-10-13] MEDS: ACETAMINOPHEN 500 MG TAB PO SCH (20:42)
[2023-10-13] MEDS: SENNA 8.6 MG TAB PO SCH (20:42)
[2023-10-13] MEDS: ASPIRIN 81 MG ECTAB PO SCH (20:42)
[2023-10-13] MEDS: ceFAZolin 1000MG 1,000 MG/7.5 ML SYR IV SCH (20:43)
[2023-10-13] MEDS ORDERED: SENNA 8.6 MG TAB PO SCH (21:00)
[2023-10-13] MEDS ORDERED: MONTELUKAST SODIUM 10 MG TABLET PO SCH (21:00)
[2023-10-13] MEDS ORDERED: ROSUVASTATIN CALCIUM 20 MG TAB PO SCH (21:00)
[2023-10-13] MEDS ORDERED: CEROVITE ADV FORMULA TAB PO SCH (21:00)
[2023-10-13] MEDS ORDERED: ADVANCED PROBIOTIC 1250 MG CAPSULE PO SCH (21:00)
[2023-10-13] MEDS ORDERED: TRANEXAMIC ACID / 0.7% NACL 1,000 MG/100 ML BAG IV SCH (21:30)
[2023-10-13] MEDS ORDERED: ACETAMINOPHEN 500 MG TAB PO SCH (22:00)
[2023-10-14] MEDS: Scopolamine CHECK PATCH PLACEMENT SCH ×2 (00:38→09:09)
[2023-10-14] MEDS: SODIUM CHLORIDE 0.9% 1,000 ML IV SCH (02:27)
[2023-10-14] MEDS: ceFAZolin 1000MG 1,000 MG/7.5 ML SYR IV SCH (05:45)
[2023-10-14 06:48] LABS: Basophils # (auto) 0.02 K/uL (0.00-0.20); Basophils % (auto) 0.2 %; Hematocrit (blood only) 35.8 % (37.0-47.0); Hemoglobin 11.9 g/dl (12.0-16.0); Immature Granulocytes # (auto) 0.05 K/uL (0.01-0.20); Immature Granulocytes % (auto) 0.4 %; Lymphocytes # (auto) 1.68 K/uL (1.20-3.40); Lymphocytes % (auto) 13.2 %; Mean Corpuscular Hemoglobin 30.9 pg (25.0-34.0); Mean Corpuscular Hgb Conc 33.2 g/dL (32.0-36.0); Mean Platelet Volume 9.1 fL (9.4-12.4); Monocytes # (auto) 0.79 K/uL (0.11-0.59); Monocytes % (auto) 6.2 %; Neutrophils # (auto) 10.17 K/uL (1.40-6.50); Platelet Count 229 K/uL (130-400); RDW Coefficient of Variation 12.8 % (11.5-14.5); RDW Standard Deviation 43.8 fL (36.4-46.3); Red Blood Count 3.85 M/uL (4.20-5.40); White Blood Count 12.71 K/ul (4.8-10.8)
[2023-10-14 07:13] LABS: BUN Creatinine Ratio 28.1 (10-20); Calcium 8.7 mg/dl (8.6-10.3); Creatinine Clr Calc Pharmacy 108.6 ml/min; Est GFR (African American) 119.7 ml/min; Est GFR (Non-African American) 103.3 ml/min; Potassium 4.1 mmol/L (3.5-5.1)
[2023-10-14] MEDS ORDERED: traMADol HCL 50 MG TABLET PO PRN (07:32)
[2023-10-14] MEDS ORDERED: diphenhydrAMINE Capsule 25 MG CAP PO PRN (07:32)
[2023-10-14] MEDS ORDERED: HYDROmorphone INJ 0.5 MG/0.5 ML SYR IV PRN (07:32)
[2023-10-14] MEDS ORDERED: HYDROmorphone HCL 2 MG TAB PO PRN (07:32)
[2023-10-14] MEDS ORDERED: dexAMETHasone 10 MG in SYRINGE 0 ML IV SCH (08:00)
[2023-10-14] MEDS ORDERED: MULTIVITAMIN TAB PO SCH (09:00)
[2023-10-14] MEDS: KETOROLAC 30 MG/ML VIAL IV SCH ×2 (09:09→13:18)
[2023-10-14] MEDS: ACETAMINOPHEN 500 MG TAB PO SCH ×2 (09:10→13:19)
[2023-10-14] MEDS: ASCORBIC ACID 500 MG TAB PO SCH (09:10)
[2023-10-14] MEDS: ASPIRIN 81 MG ECTAB PO SCH (09:11)
[2023-10-14] MEDS: SENNA 8.6 MG TAB PO SCH (09:11)
[2023-10-14] MEDS: DOCUSATE SODIUM 100 MG CAP PO SCH (09:11)
--- NOTE | 2023-10-14 11:48 | Surgery Progress Note ---
Date of Service October 14, 2023 Assessment & Plan (1) Status post right hip replacement: Plan: 53-year-old female postop day 1 from right replacement doing quite well procedures done for avascular porosis. Her pains been controlled. No chest pain or shortness of breath. Not feeling dizzy or lightheaded. Plan: 1. DVT prophylaxis including teds, SCDs, aspirin twice a day. 2. PT OT. Weight-bear as tolerated right shoulder protocol. 3. Pain control doing okay with current pain regimen. 4. Disposition plan is to discharge to home. Her sister is coming to stay with her. Will likely set her up for some home health. This all depends on her passing therapy today. Admission and Anticipated Discharge Date Admission Date: October 13, 2023 Subjective 53-year-old female postop day 1 from a right hip replacement done for AVN. She is doing pretty well. Pain is just starting to hurt a little bit. Pretty painless night last night. No chest pain or shortness of breath. Not feeling dizzy or lightheaded. She has walked the hallways once. Physical Exam Physical Exam: Physical exam shows a pleasant middle-age female. She is lying in bed this morning and looks pretty comfortable. Examination of the right hip reveals rafat ssing clean dry and intact leg lengths are equal patient dorsiflex and plantarflex her foot appropriately. She is neurologically intact. Neck: trachea midline, no thyromegaly Respiratory: normal respiratory effort, lungs clear to auscultation Cardiovascular: RRR, no murmur, no edema Neurologic: patellar DTR's 2+ bilat, sensation intact and PERRL, EOMI, accommodation nl, no face palsy, no dysarthria Results & Data Vital Signs (Past 12 Hours) Vital Signs Temp Pulse Resp BP BP Pulse Ox O2 Del Method 10/14/23 11:03 37.1 C 56 L 15 94/56 L 95 Room Air 10/14/23 07:30 18 96 10/14/23 07:29 36.7 C 48 L 15 94/57 L 94 Room Air 10/14/23 05:51 14 98 10/14/23 04:58 95/58 L 10/14/23 04:45 16 98 10/14/23 03:45 16 97 10/14/23 02:55 36.3 C L 43 L 16 92/58 L 90/52 L 97 Nasal Cannula 10/14/23 02:45 16 96 10/14/23 01:45 16 99 10/14/23 00:44 16 97 10/13/23 23:46 117/68 O2 Flow Rate 10/14/23 11:03 10/14/23 07:30 10/14/23 07:29 10/14/23 05:51 10/14/23 04:58 10/14/23 04:45 10/14/23 03:45 10/14/23 02:55 1.0 10/14/23 02:45 10/14/23 01:45 10/14/23 00:44 10/13/23 23:46 Laboratory Results Hemoglobin 11.9. Hematocrit 33.6. Electrolytes are stable. PG Care Time/CCT Total # of Minutes Spent Total Time Spent with Patient: Total time spent is greater than 50% in coordination of care (as documented) at patient's floor/unit and/or counseling patient: Coding Level of Care Code 12448 Post Operative Follow-Up Diagnoses Status post right hip replacement Z96.641
== END 2023-10-14 14:18 | disposition home or self-care (01) ==
LOC: 3W 10:59 → ASU 10:59